=== PATIENT | female | born 1965 | race Caucasian/White ===

== ENCOUNTER 2017-11-18 14:11 | Emergency (ER) | payer MEDICARE, MEDICAID, SELFPAY ==
[2017-11-18 14:14] VITALS: BP 147/95; PULSE 89; RESP 20; TEMP 35.9; O2SAT 96; BMI 38.9
[2017-11-18 15:08] VITALS: BP 147/95; PULSE 89; RESP 20; TEMP 35.9; O2SAT 96; BMI 38.9
--- NOTE | 2017-11-18 15:24 | ED.ABDPAIN ---
HPI - Abdominal Pain General Chief Complaint: Abdominal Pain Stated Complaint: abdominal pain,lethargic,vomiting Time Seen by Provider: 11/18/17 15:00 Source: patient Mode of arrival: ambulatory Limitations: no limitations History of Present Illness HPI narrative: 52-year-old female here for evaluation of her periumbilical abdominal pain. Patient states that this has been going on for an extended period of time. She states that she is here because her Percocet that she has at home are not helping her anymore. She denies any new symptoms. States she has a follow-up with a GI provider next week. She states she has not contacted her primary care doctor regarding her pain management. She states that she was fired from her last Pain Clinic because she states ???the number of pills I had did not match my blood levels ???she also states that she has been fired from 3 other pain clinics. Related Data Home Medications Medication Instructions Recorded Confirmed Humalog U-100 Insulin 18 - 25 units SUB-Q BID 11/18/17 11/18/17 Lantus U-100 Insulin 50 units SUB-Q QHS 11/18/17 11/18/17 alprazolam 1 mg PO TID 11/18/17 11/18/17 cyclobenzaprine 10 mg PO QAM 11/18/17 11/18/17 cyclobenzaprine 20 mg PO QPM 11/18/17 11/18/17 dicyclomine 20 mg PO QID 11/18/17 11/18/17 duloxetine 60 mg PO BID 11/18/17 11/18/17 erythromycin 250 mg PO Q6H 11/18/17 11/18/17 levothyroxine 1 tab PO DAILY 11/18/17 11/18/17 ondansetron HCl 4 mg PO Q6H PRN 11/18/17 11/18/17 oxycodone-acetaminophen 1 tab PO PRN PRN MDD 4 11/18/17 11/18/17 promethazine 25 - 50 mg PO Q6H PRN 11/18/17 11/18/17 quetiapine 3 tab PO QHS 11/18/17 11/18/17 Previous Rx's Medication Instructions Recorded ranitidine HCl [Zantac] 150 mg PO BEDTIME #30 tab 11/18/17 Review of Systems Constitutional Reports fatigue, Denies fever(s) and Reports lethargy Cardiovascular Denies chest pain, Denies irregular heart rhythm, Denies lightheadedness, Denies palpitations, Denies dyspnea, Denies dyspnea on exertion and Denies orthopnea Respiratory Denies cough, Denies dyspnea, Denies dyspnea on exertion and Denies wheezing Gastrointestinal Gastrointestinal: Reports abdominal pain, Denies coffee ground emesis, Denies constipation, Denies cramping, Denies diarrhea, Reports nausea, Reports vomiting and Reports hematemesis Genitourinary Denies hematuria, Denies flank pain, Denies urinary incontinence and Denies urinary urgency Musculoskeletal Denies abnormal gait, Denies back pain, Denies muscle weakness, Denies numbness and Denies tingling Integumentary/Breasts Denies pruritus, Denies erythema, Denies rash and Denies wounds Neurologic Denies abnormal gait, Denies numbness and Denies tingling Endocrine Reports fatigue and Denies palpitations Hematologic/Lymphatic Denies easy bruising Allergic/Immunologic Denies wheezing [facility] Social History Smoking Status: Current every day smoker Exam Initial Vital Signs Initial Vital Signs: Vital Signs Temperature 96.6 F L 11/18/17 14:14 Pulse Rate 89 11/18/17 14:14 Respiratory Rate 20 11/18/17 14:14 Blood Pressure 147/95 H 11/18/17 14:14 Pulse Oximetry 96 11/18/17 14:14 Const General: cooperative and well developed Nutritional Appearance: well nourished Orientation: alert, awake, oriented x3 and not confused Resp Effort & Inspection: normal respiratory effort, able to speak in complete sentences, no respiratory distress and no use of accessory muscles Auscultation: clear to auscultation bilaterally, no rales, no rhonchi and no wheezes Cardio Rate: regular rate Rhythm: regular rhythm Heart Sounds: no click, no gallops, no murmurs and no rubs Pulses: normal peripheral pulses GI Inspection: normal to inspection and non-distended Palpation: soft, No firm, No guarding and tender (Periumbilical) Skin General: no rashes or lesions noted, No jaundice and No petechiae Neuro General: alert, oriented x3, gait normal and no focal motor deficits Speech: speech normal Motor: strength 5/5 throughout Sensory Exam: no sensory deficits noted Extrem General: full ROM, no clubbing, cyanosis or edema, no pedal edema and no calf tenderness Course Vital Signs - 8 hr 11/18/17 14:14 11/18/17 15:08 Temperature 96.6 F L 96.6 F L Pulse Rate 89 89 Respiratory Rate 20 20 Blood Pressure 147/95 H 147/95 H Pulse Oximetry 96 96 MDM - Abdominal Pain MDM Narrative Medical decision making narrative: I was able to review patient's medical records [facility] dated 11/14/2017 which stated that the patient has had multiple visits for this abdominal pain in the past. Has had 2 [address] scans over the last 6 months which were reported as unremarkable except for 1 CT scan that had a generalized colitis. Patient states she has been on antibiotics multiple times. She had a relatively benign abdominal exam today. We discussed her symptoms. She is not currently on a PPI. Informed the patient that if she needed more medicine other than the Percocet to control her pain that she needed to contact her primary care doctor. She stated that her primary care doctor would not prescribe her any pain medication. She has also been per her report fired from 4 different pain management clinics for various reasons. Informed the patient that I would not refill any of her pain medication. She asked for a injection of Dilaudid here in the emergency department. I informed her that opioids were probably not in her best interest especially in the setting of her undifferentiated chronic abdominal pain. She expressed understanding. She left the emergency department before receiving any of her discharge paperwork. She was given return precautions. Discharge Plan Departure Patient Disposition: Home, Self-Care Clinical Impression: Abdominal pain Discharge Date/Time: 11/18/17 16:31 Interventions: ED Discharge Assessment Last Done: 11/18/17 16:30 Instructions: DI for Abdominal Pain-Adult Activity Restrictions/Additional Instructions: Continue all of your medications as directed. If you require more pain control you need to talk with her primary care doctor regarding this. Keep your appointment with your GI specialist next week. Prescriptions: New ranitidine HCl [Zantac] 150 mg tablet 150 mg PO BEDTIME Qty: 30 RF: 0 No Action cyclobenzaprine 10 mg tablet 10 mg PO QAM RF: 0 dicyclomine 20 mg tablet 20 mg PO QID RF: 0 duloxetine 60 mg capsule,delayed release(DR/EC) 60 mg PO BID RF: 0 erythromycin 250 mg tablet 250 mg PO Q6H RF: 0 quetiapine 200 mg tablet 3 tab PO QHS RF: 0 levothyroxine 200 mcg tablet 1 tab PO DAILY RF: 0 oxycodone-acetaminophen 5-325 mg tablet 1 tab PO PRN MDD 4 PRN (Reason: Pain, Severe) RF: 0 cyclobenzaprine 10 mg tablet 20 mg PO QPM RF: 0 alprazolam 1 mg Tablet 1 mg PO TID RF: 0 ondansetron HCl 4 mg Tablet 4 mg PO Q6H PRN (Reason: Nausea And Vomiting) RF: 0 promethazine 25 mg Tablet 25 - 50 mg PO Q6H PRN (Reason: Nausea And Vomiting) RF: 0 Humalog U-100 Insulin 18 - 25 units Sub-Q BID RF: 0 Lantus U-100 Insulin bottle 50 units Sub-Q QHS RF: 0
--- NOTE | 2017-11-18 16:29 | PC.NURSE ---
PT NOT IN ROOM AT TIME OF DISCHARGE. PT NOT IN WAITING ROOM. DISCHARGE PAPER AND PRESCRIPTION NOT GIVEN TO PT DUE TO PT NOT IN ER AT THIS TIME. PROVIDER AWARE. NO NEW ORDERS.
== END 2017-11-18 16:31 | disposition home or self-care (01) ==
PROVIDERS: Emergency Provider Emergency Medicine
DX: R10.9 Unspecified abdominal pain (principal)
CPT/HCPCS: 99282

== ENCOUNTER → 2020-01-20 11:54 | Outpatient (CLI) | payer MEDICARE, MEDICAID, SELFPAY ==
--- NOTE | 2020-01-20 | DI.MRI.S_ITS ---
PROCEDURE: MR LUMBAR SPINE WO CON INDICATIONS: sciatica, right side TECHNIQUE: Noncontrast sagittal T1 spin echo and T2 fast echo, sagittal STIR, axial T1 and T2 fast spin echo through the lumbar spine. In cases with scoliosis, additional coronal T2 fast spin echo may be performed. COMPARISON: None. FINDINGS: Image quality: Excellent. Alignment and Curvature: There is trace L4-5 L5 anterolisthesis secondary to facet hypertrophy. Bone Marrow: Marrow is of normal overall signal. No acute vertebral body compression fractures. Spinal Cord: Conus medullaris terminates at the L1-2 disc level. Visualized cord demonstrates normal signal and size. Paraspinous Soft Tissues: No paravertebral masses. L1-L2: Normal appearance. L2-L3: Slight loss of disc signal. No central stenosis. No neural foraminal narrowing. No neural compression. L3-L4: Slight loss of disc signal. Mild bilateral facet hypertrophy. No central stenosis. No neural foraminal narrowing. No neural compression. L4-L5: Loss of disc signal. Mild, diffuse disc bulge. Moderate bilateral facet hypertrophy. Mild narrowing of the central canal. Mild bilateral neural foraminal narrowing. No neural compression. L5-S1: Loss of disc signal. Mild, diffuse disc bulge. Mild bilateral facet hypertrophy. No central stenosis. No neural foraminal narrowing. No neural compression. IMPRESSION: 1. Grade 1 L4-L5 degenerative spondylolisthesis. 2. Multilevel degenerate disc disease. 3. Multilevel facet arthropathy. 4. Mild L4-L5 central canal narrowing. 5. Mild bilateral L4-L5 neural foraminal narrowing. 6. No neural compression. Dictated by: Ame Cole MD, PhD on 01/20/2020 at 15:21 Approved by: Ame Cole MD, PhD on 01/20/2020 at 15:25
== END ==
PROVIDERS: Referring Provider Orthopaedic Surgery; Visit Provider Orthopaedic Surgery
DX: M43.16 Spondylolisthesis, lumbar region (principal); M51.16 Intervertebral disc disorders with radiculopathy, lumbar region; M51.17 Intervertebral disc disorders with radiculopathy, lumbosacral region; M47.26 Other spondylosis with radiculopathy, lumbar region; M47.27 Other spondylosis with radiculopathy, lumbosacral region; M48.061 Spinal stenosis, lumbar region without neurogenic claudication
CPT/HCPCS: 72148

== ENCOUNTER → 2020-02-16 08:36 | Outpatient (CLI) | payer MEDICARE, MEDICAID, SELFPAY ==
[2020-02-16 10:27] LABS: Add Manual Diff / Slide Review NO; Basophils Absolute Auto 100 /uL (0-100); Basophils Percent Auto 0.8 % (0-2); Eosinophils Absolute Auto 100 /uL (0-450); Eosinophils Percent Auto 1.3 % (2-4); Hematocrit 42.6 % (36-46); Hemoglobin 14.7 g/dL (12.0-16.0); Lymphocytes Absolute Auto 2800 /uL (1100-4500); Mean Corpuscular HGB Conc 34.6 % (30-36); Mean Corpuscular Hemoglobin 30.4 PG (26-34); Mean Corpuscular Volume 87.7 fL (80-100); Monocytes Absolute Auto 900 /uL (0-900); Monocytes Percent Auto 8.9 % (3-14); Neutrophils Absolute Auto 5800 /uL (1500-7000); Platelet Count 332 X10^3/uL (150-400); Red Blood Cell Count 4.85 X10^6/uL (4.0-5.2); Red Cell Distribution Width 14.3 % (11.6-14.8); White Blood Cell Count 9.6 X10^3/uL (4.5-11.0)
[2020-02-16 10:46] LABS: BUN Creatinine Ratio 29.2 (6-22); Blood Urea Nitrogen 19 mg/dL (7-17); Calcium 9.6 mg/dL (8.4-10.2); Carbon Dioxide 32 mmol/L (22-32); Chloride 94 mmol/L (98-107); Estimated Glomerular Filt Rate > 60.0 mL/min (>60); Glucose 182 mg/dL (70-100); HEMOLYSIS < 15 (0-50); Potassium 3.6 mmol/L (3.4-5.1); Sodium 131 mmol/L (137-145)
[2020-02-16 10:48] LABS: Hemoglobin A1C% w Est Avg Glu 11.4 % (4.0-6.0)
== END ==
PROVIDERS: PCP Family Medicine; Referring Provider Orthopaedic Surgery; Visit Provider Orthopaedic Surgery
DX: Z01.818 Encounter for other preprocedural examination (principal); Z01.812 Encounter for preprocedural laboratory examination; R73.9 Hyperglycemia, unspecified
CPT/HCPCS: 36415; 80048; 83036; 85025; 93005

== ENCOUNTER → 2020-10-14 11:35 | Outpatient (CLI) | payer OTHER, MEDICAID, SELFPAY ==
--- NOTE | 2020-10-14 | DI.MRI.S_ITS ---
PROCEDURE: MR KNEE RT WO CON INDICATIONS: right knee TECHNIQUE: Noncontrast sagittal PD fast spin echo and T2 fast spin echo with fat saturation, sagittal 3-D FLASH with fat saturation; coronal T1 spin echo and PD fast spin echo with fat saturation, and axial PD fast spin echo with fat saturation through the knee. COMPARISON: [facility], MR, MR KNEE RIGHT WITHOUT CONTRAST, 12/28/2019, 13:11. [facility] [place], CR, XR KNEE 4+ VIEWS RIGHT, 09/20/2020, 14:08. FINDINGS: Image quality: Excellent. Menisci: Previously seen horizontal tear of the medial meniscus is less well seen on the current examination. There is vertically oriented linear high T2 signal intensity traversing the medial meniscal body, demonstrating inferior articular surface extension, indicating radial tearing. There is linear oblique high signal intensity traversing the lateral meniscal body and posterior horn, demonstrating inferior articular surface extension, which is slightly increased in prominence, indicating oblique tearing. Cruciate ligaments: The anterior cruciate ligament is intact. There is moderate to high-grade partial-thickness tearing of the posterior cruciate ligament. Medial structures: The medial collateral ligament appears intact. Visualized portions of the pes anserinus tendons appear normal. No abnormal bursal fluid. Lateral structures: The lateral collateral ligament, long and short heads of the biceps femoris tendon appear intact. The popliteus tendon appears normal. Iliotibial band appears normal. Anterior structures: The quadriceps and patellar tendons appear intact. There is mild T2 signal elevation within the patellar tendon at the patellar and tibial insertion sites. Mild T2 signal elevation within the quadriceps tendon at the patellar insertion site. Patellar alignment is normal. No femoral trochlear dysplasia or ventral trochlear prominence. Severe edema within the superolateral aspect of the infrapatellar fat pad. Bones and cartilage: No bone marrow contusions or fractures. Geographically oriented curvilinear low T1 signal intensity within the mid and posterior weight-bearing aspect of the medial femoral condyle spanning roughly 25 mm anteroposterior by 10 mm transverse by 17 mm craniocaudal. Mild tricompartmental periarticular osteophyte formation. Mild articular cartilage loss diffusely overlies the weight-bearing aspects of the medial femoral condyle and medial tibial plateau. The cartilage of the medial and lateral femorotibial compartments, as well as the patellofemoral compartment, appears normal in thickness. Moderate articular cartilage loss overlies the lateral patellar facet inferiorly. Joint space: There is a small knee joint effusion and a trace Morales's cyst. Small ganglion cyst along the popliteus. Normal appearing synovial plicae are incidentally noted. IMPRESSION: 1. Medial and lateral meniscal tearing as described above. 2. Patellar and quadriceps tendinopathy. 3. Findings consistent with lateral patellofemoral friction syndrome in the appropriate clinical setting. 4. Tricompartmental osteoarthritis with associated articular cartilage loss. 5. Knee joint effusion and trace Morales's cyst. Small ganglion cyst along the popliteus. 6. Partial-thickness posterior cruciate ligament tear. 7. Medial femoral condyle AVN. Dictated by: Lisbet Pierce M.D. on 10/15/2020 at 8:37 Transcribed by: ADRIANO on 10/15/2020 at 8:48 Approved by: Lisbet Pierce M.D. on 10/15/2020 at 8:56
== END ==
PROVIDERS: PCP Family Medicine; Referring Provider Orthopaedic Surgery; Visit Provider Orthopaedic Surgery
DX: M17.11 Unilateral primary osteoarthritis, right knee (principal); S83.281A Other tear of lateral meniscus, current injury, right knee, initial encounter; S83.241A Other tear of medial meniscus, current injury, right knee, initial encounter; M25.461 Effusion, right knee; S83.521A Sprain of posterior cruciate ligament of right knee, initial encounter
CPT/HCPCS: 73721

== ENCOUNTER → 2020-11-10 10:53 | Outpatient (CLI) | payer OTHER, MEDICAID, SELFPAY ==
[2020-11-10 12:31] LABS: COVID19 -Nasal RAPID Negative (Negative)
== END ==
PROVIDERS: PCP Family Medicine; Referring Provider Student in an Organized Health Care Education/Training Program; Visit Provider Student in an Organized Health Care Education/Training Program
DX: Z01.812 Encounter for preprocedural laboratory examination (principal); Z20.822 Contact with and (suspected) exposure to COVID-19
CPT/HCPCS: 87635; C9803

== ENCOUNTER 2020-11-13 17:22 | Inpatient (IN) | payer OTHER, MEDICAID, SELFPAY ==
[2020-11-06 11:46] VITALS: BMI 40.6
[2020-11-12] VITALS (13 sets, daily range): BP systolic 108–152; BP diastolic 53–94; PULSE 64–98; RESP 14–18; TEMP 36.1–36.8; O2SAT 92–99; BMI 40.6
--- NOTE | 2020-11-12 | DI.RAD.S_ITS ---
PROCEDURE: XR KNEE RT 1TO2V INDICATIONS: POST OP TECHNIQUE: 2 view(s) of the knee acquired. COMPARISON: [facility] [place], CR, XR KNEE 4+ VIEWS RIGHT, 09/20/2020, 14:08. FINDINGS: Bones: Patient is status post knee joint arthroplasty. Hardware components are in expected positions. Visualized bony structures are intact. Soft tissues: Overlying postoperative changes are noted. IMPRESSION: Expected postsurgical change for right knee arthroplasty. Dictated by: Ame Cole MD, PhD on 11/12/2020 at 13:15 Approved by: Ame Cole MD, PhD on 11/12/2020 at 13:18
[2020-11-12] MEDS: LACTATED RINGERS 1,000 ML 42 ML IV ×2 (09:14→11:39)
[2020-11-12] MEDS: ACETAMINOPHEN 325 MG TABLET 975 MG PO (09:21)
[2020-11-12] MEDS: PREGABALIN 75 MG CAPSULE PO (09:22)
[2020-11-12] MEDS: CELECOXIB 200 MG CAPSULE PO (09:22)
--- NOTE | 2020-11-12 10:12 | PM.PREOP ---
Pre-operative Note COVID-19 COVID-19 status: Negative Result date/Date tested (Pos, Neg/Pending): 11/10/20 Interval Note History & Physical reviewed/Exam performed by Physician: Yes Changes to H&P: No
--- NOTE | 2020-11-12 10:32 | PM.OP.1 ---
Operative Date/Time/Diagnoses Date of procedure: 11/12/20 Time of procedure: 12:42 Pre-op diagnosis: Right knee avascular necrosis Post-op diagnosis: same Procedure & Clinicians Procedure: Right total knee replacement Same procedure as scheduled: Yes Indications: The patient has had progressively worsening right knee pain with radiographic changes consistent with avascular necrosis. Non-operative management has failed and the patient has requested total knee replacement. The risks, benefits and alternatives to surgery were discussed with the patient prior to proceeding. Risks discussed included, but were not limited to, failure to relieve pain, stiffness, infection, nerve damage, deep venous thrombosis, pulmonary embolism, stroke, coma, heart attack, permanent paralysis and , as well as the potential need for eventual revision of the prosthetic. Surgeon: Venancio Rodriguez Starting Sheet Tank Operator: Immanuel Pollock Click Yes if Unassisted: No Anesthesia Type: General, Spinal and Local Operative Notes Findings: Mild arthritic change in the medial compartment and patellofemoral joint. Mild sub chondral AVN changes of medial femoral condyle. Closure Type: primary Specimen(s): none sent Prosthetic devices, grafts, tissues, transplants, or devices: Implants used in this procedure were manufactured by the [employer] and [employer] and included the BCS II Journey total knee replacement with a size 3 right Oxinium femoral component, a size 2 right non porous tibial base plate with a 10 mm cross-linked polyethylene insert and a 32 mm oval Claudia II patella. Applied: implant(s) Estimated Blood Loss (mL): 25 Blood products transfused: none Tourniquet time (min): 51 Procedure in detail: The patient was seen in the pre-operative area, where the patient identified the right knee as the operative site and this was marked with my initials. The patient received pre-operative antibiotics, and was taken to the operating room and placed on the operative table in the supine position. After satisfactory anesthesia, a multimedia programmer out was performed. The right leg was encircled with a tourniquet about the proximal thigh, and the leg was prepared from the toes to the tourniquet with ChloroPrep in the usual fashion and draped through sterile drapes. The leg was elevated and exsanguinated with Eschmark bandage and the tourniquet inflated to 250 mmHg pressure. The knee was approached through an approximately 18 cm incision centered over the patella and carried into the knee through a medial parapatellar arthrotomy. The anterior osteophytes and soft tissues were removed. The rotational landmarks of Diana's line and the transepicondylar axis were marked on the femur with electrocautery, and intramedullary guide holes for the femur and tibia were created. The distal femoral cut was made in 6 degrees of valgus using the intramedullary guide at the primary cut setting. The proximal tibial cut was then made using the intramedullary guide, taking 9 mm of bone off the less involved side. The extension gap was checked and the rotation of the femoral component confirmed with the gap balancing system. The anterior, posterior and chamfer cuts were then made. The posterior osteophytes and soft tissues were then removed. The posterior capsule was injected with part of a mixture of 60 ml 0.25% Marcaine mixed with 20 ml Exparel and 4 mg of morphine for post-operative pain control. The remainder of this mixture was injected into the capsule and subcutaneous tissues during cement curing. The tibia was prepared with the rotation set by an extra medullary guide. Trial tibial and femoral components were then placed and the intercondylar notch cut through the femoral trial. Range of motion was 0-135 degrees, with good stability throughout the range. The patella was then cut to accommodate the patellar prosthetic. There was no need for a lateral release. The trials were then removed, and the femoral hole plugged with a bone plug. The bone was prepared with pulsatile lavage, and dried with a sponge. Cement was applied and the final prosthetics placed. Excess cement was removed during and after cement curing. After confirming there was no extruded cement posteriorly, the final tibial insert was placed. The knee was copiously irrigated and the tourniquet deflated. Hemostasis was obtained. The capsule was closed with interrupted # 2 polyester suture. The subcutaneous layer was closed with 3-0 Vicryl, and the skin with a running 3-0 V-Lock suture and Dermabond. An Aquacel Ag dressing was applied and the patient was taken to recovery having tolerated the procedure well. Complications: none Post-operative Condition: stable Disposition: PACU Plan for aftercare: The patient will be maintained on a standard total knee replacement protocol with weight bearing as tolerated. The patient will receive aspirin and sequential compression devices for DVT prophylaxis. The patient will be discharged home when safe for the home environment.
[2020-11-12] MEDS: CEFAZOLIN 2 GM/100 ML FROZ.PIGGY IV (11:04)
[2020-11-12] MEDS: TRANEXAMIC ACID 1,000 MG VIAL 1000 MG INJ ×2 (11:10→12:31)
--- NOTE | 2020-11-12 11:24 | SUR.OPER ---
Supine on padded OR bed. Pillow under head, arms secured on padded armboards <90 degree abduction. Safety belt across torso. Non-operative leg secured with tape over blanket over lower leg. Operative leg secured in DeMayo/Nathan positioner. Foam padded brace at thigh of operative leg.
[2020-11-12] MEDS: BUPIVACAINE LIPOSOME 266 MG/20 ML VIAL INJ (11:37)
[2020-11-12] MEDS: BUPIVACAINE 0.25% W/ EPI 30 ML VIAL 60 ML INJ (11:37)
[2020-11-12] MEDS: MORPHINE 4 MG/ML INJ INJ (11:38)
--- NOTE | 2020-11-12 13:53 | PC.NURSE ---
Day shift: Pt on unit at approx 1324 from PACU. She is A&Ox4. Denies any rt knee pain but stated that her shoulders and neck do hurt her chronically. VS WNL. RA 95%. PPP and toes are warm. No sensation below the rt thigh and can't wiggle toes at this time. Denies any nausea or chest pain. Wanted a cup of coffee and is tolerating that right now. BT's hypoactive and denies passing any flatus. No drains and no Bejarano. BG was 157 pre-op. Oriented to room and call light. Agrees to not get OOB w/o help from staff. Call light in reach.
[2020-11-12] MEDS: LACTATED RINGERS 1,000 ML 100 ML IV ×2 (13:59→23:07)
[2020-11-12] MEDS: HYDROMORPHONE 2 MG TABLET PO ×3 (14:11→21:41)
[2020-11-12] MEDS: GABAPENTIN 300 MG CAPSULE 900 MG PO ×2 (14:11→21:23)
[2020-11-12] MEDS: ACETAMINOPHEN 325 MG TABLET 650 MG PO ×2 (14:12→21:24)
[2020-11-12] MEDS: BACLOFEN 10 MG TABLET PO ×2 (14:12→21:23)
[2020-11-12] MEDS: IBUPROFEN 400 MG TABLET PO ×3 (14:12→21:23)
[2020-11-12] MEDS: ALPRAZolam 0.5 MG TABLET 1 MG PO ×2 (14:54→21:23)
--- NOTE | 2020-11-12 16:28 | PT.IIE ---
Current Diagnoses Unilateral primary osteoarthritis, right knee (11/12/20) Derangement of unspecified medial meniscus due to old tear or injury, right knee (11/12/20) Osteonecrosis, unspecified (11/12/20) Surgery Performed Operation Date: 11/12/20 10:45 Actual Procedures p Total Knee Arthroplasty(Right) - Venancio Rodriguez MD Surgical History (Last Updated 11/09/20 @ 10:22 by Dena Frank RN) History of bilateral tubal ligation History of section History of surgery (~2006) Hx of appendectomy Hx of cholecystectomy Hx of eye surgery Hx of foot surgery (09/03/07) Hx of fusion of cervical spine Medical History (Last Updated 11/09/20 @ 10:23 by Dena Frank RN) Acid reflux ADD (attention deficit disorder) Agoraphobia Anxiety Bipolar 2 disorder COPD (chronic obstructive pulmonary disease) Depression Diabetes Fibromyalgia Hypothyroid Neuropathy Old complex tear of medial meniscus of right knee RAMIRO (obstructive sleep apnea) Osteoarthritis Pneumonia Post-menopausal PTSD (post-traumatic stress disorder) Sciatica Physical Therapy Inpatient Evaluation/Re-Eval M1 PT/OT-IP Prior Functional Status Start: 11/12/20 15:41 Freq: NEEDED Status: Active Protocol: Document 11/12/20 16:28 AW (Rec: 11/12/20 17:14 AW [id number]) Medical Review Prior Functional Status Medical History Reviewed Yes Communication WNL. Pt is an effective verbal communicator. Mobility and Gait Pt uses 4WW or SPC for distances limited to 150 feet or less. Sometimes, she ambulates in her home with no AD but stays close to furniture and gomes. Pt admits to falls in the past year but won't say how many or if any were injurious. Activities of Daily Living and IADL's Independent Prior Functional Level (Other details) Pt states she has chronic back pain and fibromyalgia. Social History Household Members significant other Living Arrangements Apartment/Condo Number of Floors (Floors) One Floor Number of Stairs To Enter/Railing? Level entrance Home Environment Standard Height Toilet,High Toilet,Tub/Shower Home Equipment Four Wheel Walker,Straight Cane,Manual Wheelchair,Hand Held Shower,Hospital Bed,Grab Bars Near Toilet,Grab Bars In Shower Employment Status Unemployed Additional Social History Comment Pt lives with her significant other, Dell, who works in the apartment complex where they live. He will not be home 26/01 at discharge but will be readily available. Pt states her daughter is considering visiting from [place] in order to help but plans are not certain. M2 PT-IP Current Condition Start: 11/12/20 15:41 Freq: NEEDED Status: Active Protocol: Document 11/12/20 16:28 AW (Rec: 11/12/20 17:14 AW [id number]) Physical Therapy Current Condition Current Condition Evaluation Date 11/12/20 Treatment Diagnosis R TKA; difficulty in walking Onset Date 11/12/20 Precautions Other Precautions falls Weight Bearing Status Weight Bearing Status Weight Bear as Tolerated M3 PT-IP Subjective Start: 11/12/20 15:41 Freq: NEEDED Status: Active Protocol: Document 11/12/20 16:28 AW (Rec: 11/12/20 17:14 AW [id number]) Subjective Physical Therapy Visit Type Visit Start Time 15:55 Visit Stop Time 16:28 Total Visit Minutes 33 Notes Pt's SO, Dell, is present throughout evaluation. Physical Therapy Visit Comments Patient Comments Pt is willing to participate with PT Patient Goals Return home with SO support Therapy Pain Assessment Pain When Pain Assessed During Mobility Pain Present Pain Present Pain Reported Location Right Knee Intensity 7 Scale Used Numeric (0 - 10) Pain Behaviors Wincing Pain Management Techniques Apply Cold,Modification of Treatment,Re-positioning, Timing of Activity with Medications M4 PT-IP Mobility and Gait Start: 11/12/20 15:41 Freq: NEEDED Status: Active Protocol: Document 11/12/20 16:28 AW (Rec: 11/12/20 17:14 AW [id number]) PT-Bed Mobility Assessment Supine to Sit Supine to Sit Contact Guard Assistance,1 Person Assistance,Head of Bed Elevated Sit to Supine Sit to Supine Minimal Assistance,1 Person Assistance Scooting Scooting to Edge of Bed Contact Guard Assistance PT-Transfer Assessment Sit to and From Stand Sit to and from Stand Contact Guard Assistance Equipment Transfer Assistive Device Gait Belt,Front Wheeled Walker Orthotic/Prosthetic Devices or Brace: No Transfers Transfer Destination Bed,Chair Transfer Technique Stand Step Pivot Transfer Ability Level of Assist Contact Guard Assistance Comments Mobility Comments Pt was lying in bed as PT arrived. BP 158/79 HR 102. She states she has a hospital bed at home, so completed supine to sit with HOB elevated and CGA for stability. PT is 5'1 so was unable to touch the ground in sitting EOB and required CGA to stand. She was able to shift weight and agreed to ambulate in the room . She walked five feet forward toward the window and began to report cold sweat and nausea. Pt sat on the chair CGA. BP was 128/51 HR 98. Pt was provided a cool washcloth. Nausea resolved and pt was able to stand from the chair CGA and used FWW to transfer to the bed. She needed min assist for return to supine. BP recovered to 152/68 HR 103. Reported findings to RN and left pt with call light in reach, bed alarm on, SO remained in the room. Gait Assessment Gait Gait Assistance Required: Contact Guard Assist Distance (Feet) 5 Able to Maintain Weight Bearing Status Yes During Gait Assistive Devices Assistive Device Gait Belt,Front Wheeled Walker Orthotic/Prosthetic Devices or Brace: No Gait Deviations General Gait Pattern Antalgic,Decreased Stride Length,Decreased Feet Clearance,Flexed Trunk,Step-to Gait,Wide Based Gait Factors Limiting Gait Function Factors Limiting Gait Function Decreased Sensation,Decreased Strength,Limited Range of Motion,Pain,Poor Balance Comments Gait Comments See mobility comments for details. Stair Climbing Assessment Comments Stair Climbing Comments Not assessed. No stairs at home. PT-Balance Assessment Sitting Balance and Reactions Static Sitting Balance Ability Good Dynamic Sitting Balance Ability Good Standing Balance and Reactions Static Standing Balance Ability Good Dynamic Standing Balance Ability Fair Device Used FWW M5 PT-IP Objective Assessments Start: 11/12/20 15:41 Freq: NEEDED Status: Active Protocol: Document 11/12/20 16:28 AW (Rec: 11/12/20 17:14 AW [id number]) Orientation Orientation/Cognition Level of Alertness Alert Orientation Name,Day of Week,Place, Situation Language Function Ability No Deficits Noted Safety Awareness Understands Safety Issues Memory Description No Deficits Noted Gross Range of Motion Lower Extremity ROM Assessment Right Impaired Strength Lower Extremity Strength Assessment Right Impaired Hip 4-/5 Knee 3-/5 Ankle 4-/5 Sensation Assessment Sensation Gross Sensation Right LE Impaired,Left LE Impaired Light Touch Impaired Proprioception (Position) Impaired Sensation Description Numbness,Burning,Pain Comments Sensation Comments Pt has neuropathy affecting bilateral feet up to malleoli. On evaluation, pt had impaired light touch sensation from buttocks to mid thigh but was able to perceive pressure. M6 PT-IP Treatment Start: 11/12/20 15:41 Freq: NEEDED Status: Active Protocol: Document 11/12/20 16:28 AW (Rec: 11/12/20 17:14 AW [id number]) Physical Therapy Treatment Exercises Exercises Ankle Pumps,Quad Sets,Heel Slides,Passive Knee Extension Hang Education Education Provided Precautions,Weight Bearing Status,Post-Op Packet,Safety Other Treatments Other Treatment Performed Educated pt on PT plan of care , weightbearing status, rationale for selection of FWW as assistive device at this time, and importance of ROM in initial phase of rehab. M7 PT-IP Assessment and Plan Start: 11/12/20 15:41 Freq: NEEDED Status: Active Protocol: Document 11/12/20 16:28 AW (Rec: 11/12/20 17:14 AW [id number]) PT Summary Assessment and Plan Potential Rehabilitation Potential Good Status of Condition at Evaluation Evolving Summary Impairments Pain,ROM,Strength,Balance, Sensation,Bed Mobility, Transfers,Gait,Activity Tolerance Assessment Summary Ofelia is a 55 yo woman seen for PT evaluation on POD1 following R TKA. She is modifed independent for short distance community ambulation using 4WW or SPC at baseline. On evaluation, pt was limited by diaphoresis and nausea but was able to tolerate 5 feet ambulation with FWW CGA. Pt will need to improve her mobility independence for safe discharge home. Outpatient PT is already scheduled. Goals Bed Mobility Goal Independent Transfer Goal Independent,Front Wheeled Walker Gait Goal Independent,Front Wheel Walker Gait Distance 120 Days to Meet Goals 5 Frequency of Treatment Frequency Of Treatment Twice a Day Treatment Plan Physical Therapy Treatment Plan Bed Mobility Training,Transfer Training,Gait Training, Therapeutic Exercise,Balance Retraining,Post Op Education, Discharge Planning,Hot or Cold Pack,Neuromuscular Re-ed Other Recommendations and Next Treatment assess gait with 4WW if Focus appropriate; progress gait training with AD of choice. Precautions Other Precautions WBAL RLE. Falls. Recommendations To Nursing Amount of Assist Needed 1 Person Assist Discharge Recommendations PT Discharge Recommendations Home with Assistance, Outpatient PT Equipment Needed for Home Before FWW if unsafe with 4WW Discharge Transportation Needs at Discharge Private Vehicle
[2020-11-12] MEDS: hydrOXYzine pamoate 25 MG CAPSULE PO (16:39)
[2020-11-12] MEDS: ONDANSETRON 4 MG ODT PO (16:51)
[2020-11-12] MEDS: ONDANSETRON 4 MG/2 ML INJ IV (18:12)
[2020-11-12] MEDS: INSULIN GLARGINE 100 UNIT/ML 3ML PEN 50 UNIT SUBCUT (18:15)
[2020-11-12] MEDS: MORPHINE ER 30 MG TABLET PO (19:11)
[2020-11-12] MEDS: HYDROMORPHONE 0.5 MG INJ 0.2 MG IV (20:09)
[2020-11-12] MEDS: PROMETHAZINE 25 MG TABLET PO (20:09)
[2020-11-12] MEDS: ASPIRIN EC 81 MG TABLET PO (21:23)
[2020-11-12] MEDS: DULOXETINE 30 MG CAPSULE 60 MG PO (21:23)
[2020-11-13] MEDS: IBUPROFEN 400 MG TABLET PO ×6 (00:12→22:22)
[2020-11-13] MEDS: ONDANSETRON 4 MG/2 ML INJ IV ×2 (00:12→05:17)
[2020-11-13] MEDS: HYDROMORPHONE 2 MG TABLET PO ×6 (00:14→15:34)
[2020-11-13] MEDS: hydrOXYzine pamoate 25 MG CAPSULE PO ×2 (00:14→11:48)
[2020-11-13] MEDS: PROMETHAZINE 25 MG TABLET PO (02:59)
[2020-11-13 03:10] VITALS: BP 136/61; PULSE 100; RESP 18; TEMP 36.4; O2SAT 94
[2020-11-13] MEDS: HYDROMORPHONE 0.5 MG INJ 0.2 MG IV ×8 (04:22→18:08)
[2020-11-13] MEDS: MORPHINE ER 30 MG TABLET PO ×2 (05:18→18:08)
[2020-11-13] MEDS: LEVOTHYROXINE 100 MCG TABLET 200 MCG PO (06:18)
[2020-11-13 07:02] LABS: Hematocrit 37.2 % (36-46); Hemoglobin 12.5 g/dL (12.0-16.0)
--- NOTE | 2020-11-13 07:29 | P.PN_ITS ---
Subjective Subjective Date Patient Seen: 11/13/20 Time Patient Seen: 07:29 Interval history: Patient states she is in a significant amount of discomfort even at rest. At this time denies fever, chills, nausea, chest pain, shortness of breath, or urinary retention. She reports good sensation throughout the bilateral lower extremities to light touch. She explains that she has been able to ambulate to use the commode and sit in the arm chair in her room. Exam Vital Signs (past 8 hours): - 11/12/20 23:40 11/13/20 03:10 Temperature 97.0 F L 97.6 F Pulse Rate 98 H 100 H Respiratory Rate 18 18 Blood Pressure 132/65 136/61 Pulse Oximetry 95 94 Oxygen Delivery Method Room Air Oxygen Flow Rate 0 Narrative Exam Narrative: 55-year-old female postop day 1 status post right total knee arthroplasty. Patient is resting in bed, appears uncomfortable, and is alert and oriented x3. Skin is warm and dry, and the skin surrounding the incision site is free of erythema, warmth, induration, or discharge. Aquacel dressing over the incision is free of strike through and is clean and dry. Good sensation appreciated throughout the bilateral lower extremities to light touch. Tenderness to palpation along the medial and lateral aspects of the right thigh and lower leg. Ankle dorsiflexion, plantar flexion, eversion, inversion performed bilaterally without difficulty or discomfort. Calves are soft and nontender, negative Homans sign. Palpable pulses appreciated, capillary refill less than 2 seconds. No other signs of DVT appreciated. Const General: cooperative and healthy appearing Resp Effort & Inspection: normal respiratory effort and able to speak in complete se ntences Skin General: no rashes or lesions noted Objective Labs Result Diagrams: 11/13/20 06:50 Labs: Laboratory Results - last 24 hr 11/13/20 06:50 Hgb 12.5 Hct 37.2 PFSH Medical History Acid reflux ADD (attention deficit disorder) Agoraphobia Anxiety Bipolar 2 disorder COPD (chronic obstructive pulmonary disease) Depression Diabetes Fibromyalgia Hypothyroid Neuropathy Old complex tear of medial meniscus of right knee RAMIRO (obstructive sleep apnea) Osteoarthritis Pneumonia Post-menopausal PTSD (post-traumatic stress disorder) Sciatica Surgical History History of bilateral tubal ligation History of section History of surgery (~2006) Hx of appendectomy Hx of cholecystectomy Hx of eye surgery Hx of foot surgery (09/03/07) Hx of fusion of cervical spine Social History household members: significant other Smoking Status: Former smoker alcohol intake: never Assessment & Plan Post-op Postoperative Procedures: Procedures Operation Date: 11/12/20 10:45 Actual Procedures Side Surgeon p Total Knee Arthroplasty Right Venancio Rodriguez MD Postoperative day: 1 Postoperative plan: ambulate Postoperative plan narrative: Patient is to work with physical therapy on ambulation with the assistance of a front wheeled walker. She is to remain in standard total knee replacement protocol and to be weight-bearing as tolerated with the assistance of a front wheeled walker. Patient is to continue use of SCDs and aspirin 81 mg twice daily for DVT prophylaxis. Current pain management regimen is to be continued to see if her pain level can be better controlled. Time Spent With Patient Time with patient: 15-24 minutes
[2020-11-13 07:35] VITALS: BP 162/74; PULSE 95; RESP 16; TEMP 36.9; O2SAT 95
[2020-11-13 07:53] VITALS: PULSE 97; RESP 16; O2SAT 94
[2020-11-13] MEDS: DULOXETINE 30 MG CAPSULE 60 MG PO ×2 (08:08→22:21)
[2020-11-13] MEDS: GABAPENTIN 300 MG CAPSULE 900 MG PO ×3 (08:08→22:21)
[2020-11-13] MEDS: TIZANIDINE 4 MG TABLET PO (08:09)
[2020-11-13] MEDS: DOCUSATE 100 MG CAPSULE PO ×2 (08:09→22:21)
[2020-11-13] MEDS: BACLOFEN 10 MG TABLET PO ×3 (08:09→22:20)
[2020-11-13] MEDS: METFORMIN HCL 500 MG TABLET PO ×2 (08:11→22:22)
[2020-11-13] MEDS: ALPRAZolam 0.5 MG TABLET 1 MG PO ×2 (08:12→14:00)
[2020-11-13] MEDS: ACETAMINOPHEN 325 MG TABLET 650 MG PO ×3 (08:12→22:19)
--- NOTE | 2020-11-13 08:22 | P.PN_ITS ---
Subjective Subjective Date Patient Seen: 11/13/20 Time Patient Seen: 08:23 Interval history: The patient complains of significant discomfort overnight. Exam Vital Signs (past 8 hours): - 11/13/20 03:10 11/13/20 07:53 Temperature 97.6 F Pulse Rate 100 H 97 H Respiratory Rate 18 16 Blood Pressure 136/61 Pulse Oximetry 94 94 Oxygen Delivery Method Room Air Oxygen Flow Rate 0 Narrative Exam Narrative: Right knee wound is dressed with no drainage on the bandage. There is minimal swelling. There is no surrounding erythema. Calf is soft. Light touch and motion are intact in the right lower extremity. Objective Labs Result Diagrams: 11/13/20 06:50 Labs: Laboratory Results - last 24 hr 11/13/20 06:50 Hgb 12.5 Hct 37.2 PFSH Medical History Acid reflux ADD (attention deficit disorder) Agoraphobia Anxiety Bipolar 2 disorder COPD (chronic obstructive pulmonary disease) Depression Diabetes Fibromyalgia Hypothyroid Neuropathy Old complex tear of medial meniscus of right knee RAMIRO (obstructive sleep apnea) Osteoarthritis Pneumonia Post-menopausal PTSD (post-traumatic stress disorder) Sciatica Surgical History History of bilateral tubal ligation History of section History of surgery (~2006) Hx of appendectomy Hx of cholecystectomy Hx of eye surgery Hx of foot surgery (09/03/07) Hx of fusion of cervical spine Social History household members: significant other Smoking Status: Former smoker alcohol intake: never Assessment & Plan Post-op Postoperative Procedures: Procedures Operation Date: 11/12/20 10:45 Actual Procedures Side Surgeon p Total Knee Arthroplasty Right Venancio Rodriguez MD Postoperative day: 1 Postoperative status: doing well and marginal pain control Postoperative status narrative: Patient is 1 day status post total knee replacement. She has had marginal pain control overnight. She is a chronic pain management patient was managed on MS Contin at baseline. She is receiving that with additional delighted and oxycodone for postoperative pain control. She also has an anxiety disorder and is receiving her antianxiety medications. She is aware of the difficulty controlling postoperative pain in patients who are narcotic dependent at baseline. She understands it is a matter of time before her pain will improve. Postoperative plan: routine post-op care and ambulate Postoperative plan narrative: At this point we will continue her MS Contin, oxycodone and hydromorphone for breakthrough pain. We will continue her anxiolytics. She will work with Physical therapy to mobilize. It will likely be 1-2 more days before she is ready to discharge home based on the significant pain control issues, which I anticipate will limit her progress in physical th erapy. Time Spent With Patient Time with patient: 15-24 minutes
--- NOTE | 2020-11-13 09:15 | PT.IPTN ---
Current Diagnoses Unilateral primary osteoarthritis, right knee (11/12/20) Derangement of unspecified medial meniscus due to old tear or injury, right knee (11/12/20) Osteonecrosis, unspecified (11/12/20) Surgery Performed Operation Date: 11/12/20 10:45 Actual Procedures p Total Knee Arthroplasty(Right) - Venancio Rodriguez MD Physical Therapy Treatment Note M2 PT-IP Current Condition Start: 11/12/20 15:41 Freq: NEEDED Status: Active Protocol: Document 11/12/20 16:28 AW (Rec: 11/12/20 17:14 AW [id number]) Physical Therapy Current Condition Current Condition Evaluation Date 11/12/20 Treatment Diagnosis R TKA; difficulty in walking Onset Date 11/12/20 Precautions Other Precautions falls Weight Bearing Status Weight Bearing Status Weight Bear as Tolerated M3 PT-IP Subjective Start: 11/12/20 15:41 Freq: NEEDED Status: Active Protocol: Document 11/13/20 09:15 AB (Rec: 11/13/20 11:24 AB [id number]) Subjective Physical Therapy Visit Type Type Treatment Note Visit Start Time 09:15 Visit Stop Time 09:46 Total Visit Minutes 31 Number of HUMAN [employer] TEAM MEMBER Visits 0 Physical Therapy Visit Comments Patient Comments agreed to do PT; c/o increase knee and back pain Therapy Pain Assessment Pain When Pain Assessed At Rest Pain Present Pain Present Pain Reported Location Back Intensity 10 Right Knee Intensity 10 Scale Used Numeric (0 - 10) Pain Management Techniques Apply Cold,Distraction, Modification of Treatment,Re- positioning,Timing of Activity with Medications M4 PT-IP Mobility and Gait Start: 11/12/20 15:41 Freq: NEEDED Status: Active Protocol: Document 11/13/20 09:15 AB (Rec: 11/13/20 11:24 AB [id number]) PT-Bed Mobility Assessment Supine to Sit Supine to Sit Maximum Assistance,Head of Bed Elevated,Bedrails PT-Transfer Assessment Sit to and From Stand Sit to and from Stand Minimal Assistance,1 Person Assistance,Use of Upper Extremities Equipment Transfer Assistive Device Gait Belt,4 Wheeled Walker Orthotic/Prosthetic Devices or Brace: No Transfers Transfer Destination Bedside Commode Transfer Technique Stand Step Pivot Transfer Ability Level of Assist Minimal Assistance,1 Person Assistance,Use of Upper Extremities Comments Mobility Comments completed supine to sit max A and max cues. HOB elevated and pt used bed rail to assist . required increase rest breaks in between activities due to c/o increase back and knee pain. pt ambulated in room using 4WW 15 ft min A and cues. stated that she will try to sit up on chair for a few minutes but requested to use the toilet but stated that she cannot walk anymore. bedside commode set up and completed step transfer using 4WW min A and cues. completed sit to stand from bedside commode min A and transfered to chair using 4WW min A and cues. positioned on chair. call light and table placed within reach. Gait Assessment Gait Gait Assistance Required: Minimum Assistance Distance (Feet) 15 Able to Maintain Weight Bearing Status Yes During Gait Assistive Devices Assistive Device Gait Belt,4 Wheeled Walker Gait Deviations General Gait Pattern Antalgic,Decreased Stride Length,Decreased Feet Clearance,Flexed Trunk Factors Limiting Gait Function Factors Limiting Gait Function Decreased Activity Tolerance, Decreased Strength,Limited Range of Motion,Pain,Poor Balance,Poor Safety Awareness Comments Gait Comments pls refer to mobility section for details M5 PT-IP Objective Assessments Start: 11/12/20 15:41 Freq: NEEDED Status: Active Protocol: Document 11/12/20 16:28 AW (Rec: 11/12/20 17:14 AW [id number]) Orientation Orientation/Cognition Level of Alertness Alert Orientation Name,Day of Week,Place, Situation Language Function Ability No Deficits Noted Safety Awareness Understands Safety Issues Memory Description No Deficits Noted Gross Range of Motion Lower Extremity ROM Assessment Right Impaired Strength Lower Extremity Strength Assessment Right Impaired Hip 4-/5 Knee 3-/5 Ankle 4-/5 Sensation Assessment Sensation Gross Sensation Right LE Impaired,Left LE Impaired Light Touch Impaired Proprioception (Position) Impaired Sensation Description Numbness,Burning,Pain Comments Sensation Comments Pt has neuropathy affecting bilateral feet up to malleoli. On evaluation, pt had impaired light touch sensation from buttocks to mid thigh but was able to perceive pressure. M6 PT-IP Treatment Start: 11/12/20 15:41 Freq: NEEDED Status: Active Protocol: Document 11/13/20 09:15 AB (Rec: 11/13/20 11:24 AB [email or web address]) Physical Therapy Treatment Exercises Exercises Heel Slides Education Education Provided Weight Bearing Status,Safety M7 PT-IP Assessment and Plan Start: 11/12/20 15:41 Freq: NEEDED Status: Active Protocol: Document 11/13/20 09:15 AB (Rec: 11/13/20 11:24 AB [id number]) PT Summary Assessment and Plan Potential Rehabilitation Potential Fair Summary Impairments Pain,ROM,Strength,Balance, Coordination,Sensation,Tone, Cognition,Bed Mobility, Transfers,Gait,Activity Tolerance Progress Towards Goals Slow Progress due to Pain,Slow Progress due to Activity Tolerance Assessment Summary pt requiring min A with mobility and unable to tolerate much activities with c/o increase pain limiting mobility. will continue to assess progress. pt stated that spouse can assist as needed but cannot be with her 26/01. pt may require SNF rehab at this time and needs to be more independent than current level to d/c safely back home. Goals Bed Mobility Goal Standby Assistance Transfer Goal Standby Assistance Gait Goal Standby Assistance Gait Distance 150 Days to Meet Goals 5 Frequency of Treatment Frequency Of Treatment Twice a Day Treatment Plan Physical Therapy Treatment Plan Bed Mobility Training,Transfer Training,Gait Training, Therapeutic Exercise,Balance Retraining,Post Op Education, Discharge Planning,Hot or Cold Pack,Neuromuscular Re-ed, Coordination Retraining,Manual Therapy Precautions Other Precautions RLE WBAT Recommendations To Nursing Amount of Assist Needed 1 Person Assist Discharge Recommendations PT Discharge Recommendations Home Health,Home vs SNF Transportation Needs at Discharge Private Vehicle,Wheelchair/ Cabulance
[2020-11-13] MEDS: ASPIRIN EC 81 MG TABLET PO ×2 (09:32→22:20)
--- NOTE | 2020-11-13 09:34 | PC.NURSE ---
Day shift: Pain in rt knee, back, neck and bilat shoulder discussed w/ PA Neetu this AM. No changes in pain management made at this time. On pain reassessment for starting pain 03/15 pain stated 03/15. SHe did say that the muscle relaxer helped w/ her back spasms. She is OOB w/ PT at this time and she can be heard moaning at times. Will continue to monitor. No nausea this AM after breakfast. Sitting in chair and call light in reach.
[2020-11-13 12:30] VITALS: BP 161/72; PULSE 88; RESP 16; TEMP 36.6; O2SAT 93
--- NOTE | 2020-11-13 12:50 | PT.IPTN ---
Current Diagnoses Unilateral primary osteoarthritis, right knee (11/12/20) Derangement of unspecified medial meniscus due to old tear or injury, right knee (11/12/20) Osteonecrosis, unspecified (11/12/20) Surgery Performed Operation Date: 11/12/20 10:45 Actual Procedures p Total Knee Arthroplasty(Right) - Venancio Rodriguez MD Physical Therapy Treatment Note M2 PT-IP Current Condition Start: 11/12/20 15:41 Freq: NEEDED Status: Active Protocol: Document 11/12/20 16:28 AW (Rec: 11/12/20 17:14 AW [id number]) Physical Therapy Current Condition Current Condition Evaluation Date 11/12/20 Treatment Diagnosis R TKA; difficulty in walking Onset Date 11/12/20 Precautions Other Precautions falls Weight Bearing Status Weight Bearing Status Weight Bear as Tolerated M3 PT-IP Subjective Start: 11/12/20 15:41 Freq: NEEDED Status: Active Protocol: Document 11/13/20 12:50 AB (Rec: 11/13/20 14:34 AB [id number]) Subjective Physical Therapy Visit Type Type Treatment Note Visit Start Time 12:50 Visit Stop Time 13:15 Total Visit Minutes 25 Number of STREETSWEEPER OPERATOR Visits 0 Physical Therapy Visit Comments Patient Comments pt is agreeable to do PT Therapy Pain Assessment Pain When Pain Assessed At Rest Pain Present Pain Present Pain Reported Location Back Intensity 8 Right Knee Intensity 8 Scale Used Numeric (0 - 10) Pain Management Techniques Distraction,Modification of Treatment,Re-positioning, Timing of Activity with Medications M4 PT-IP Mobility and Gait Start: 11/12/20 15:41 Freq: NEEDED Status: Active Protocol: Document 11/13/20 12:50 AB (Rec: 11/13/20 14:34 AB [id number]) PT-Bed Mobility Assessment Supine to Sit Supine to Sit Moderate Assistance,Maximum Assistance,1 Person Assistance ,Head of Bed Elevated,Bedrails PT-Transfer Assessment Sit to and From Stand Sit to and from Stand Minimal Assistance,1 Person Assistance,Use of Upper Extremities Equipment Transfer Assistive Device Gait Belt,4 Wheeled Walker Orthotic/Prosthetic Devices or Brace: No Transfers Transfer Destination Toilet Transfer Technique ambulated using 4WW Transfer Ability Level of Assist Contact Guard Assistance, Minimal Assistance,1 Person Assistance,Use of Upper Extremities Comments Mobility Comments pt completed bed mobility supine to sit with HOB elevated mod to max A for RLE. c/o increase RLE knee pain. completed sit to stand min and cues and ambulated in room ~ 30 ft using 4WW CGA to min A. slow french with increase forward flexion during ambulation. pt also c/o chronic back pain. pt requested to use the toilet and ambulated to the toilet using 4WW CGA to min A. completed sit to stand using grab bar min A and ambulated to the chair using 4WW CGA. pt rested and agreed to walk again and completed using 4WW 30 ft CGA to min A. pt requested to sit on chair. call light and table placed within reach. set up caregiver training tomorrow at ~ 9 am and pt calling spouse to inform. informed pt regarding possible SNF and pt refused. stated that her sister from [place] will be coming in november 20 to stay with her and assist her. also informed pt regarding ambulation tolerance and pt stated that she has a w/c that she can use at home. Gait Assessment Gait Gait Assistance Required: Contact Guard Assist,Minimum Assistance Distance (Feet) 30 Able to Maintain Weight Bearing Status Yes During Gait Assistive Devices Assistive Device Gait Belt,4 Wheeled Walker Orthotic/Prosthetic Devices or Brace: No Gait Deviations General Gait Pattern Antalgic,Decreased Stride Length,Decreased Feet Clearance,Flexed Trunk,Step-to Gait Factors Limiting Gait Function Factors Limiting Gait Function Decreased Activity Tolerance, Decreased Strength,Limited Range of Motion,Pain,Poor Balance,Poor Safety Awareness Comments Gait Comments pls refer to mobility section for details M5 PT-IP Objective Assessments Start: 11/12/20 15:41 Freq: NEEDED Status: Active Protocol: Document 11/12/20 16:28 AW (Rec: 11/12/20 17:14 AW [id number]) Orientation Orientation/Cognition Level of Alertness Alert Orientation Name,Day of Week,Place, Situation Language Function Ability No Deficits Noted Safety Awareness Understands Safety Issues Memory Description No Deficits Noted Gross Range of Motion Lower Extremity ROM Assessment Right Impaired Strength Lower Extremity Strength Assessment Right Impaired Hip 4-/5 Knee 3-/5 Ankle 4-/5 Sensation Assessment Sensation Gross Sensation Right LE Impaired,Left LE Impaired Light Touch Impaired Proprioception (Position) Impaired Sensation Description Numbness,Burning,Pain Comments Sensation Comments Pt has neuropathy affecting bilateral feet up to malleoli. On evaluation, pt had impaired light touch sensation from buttocks to mid thigh but was able to perceive pressure. M6 PT-IP Treatment Start: 11/12/20 15:41 Freq: NEEDED Status: Active Protocol: Document 11/13/20 12:50 AB (Rec: 11/13/20 14:34 AB [id number]) Physical Therapy Treatment Exercises Exercises Heel Slides Education Education Provided Safety M7 PT-IP Assessment and Plan Start: 11/12/20 15:41 Freq: NEEDED Status: Active Protocol: Document 11/13/20 12:50 AB (Rec: 11/13/20 14:34 AB [id number]) PT Summary Assessment and Plan Potential Rehabilitation Potential Good Summary Impairments Pain,ROM,Strength,Balance, Coordination,Sensation,Tone, Cognition,Bed Mobility, Transfers,Gait,Activity Tolerance Progress Towards Goals Slow Progress due to Pain Assessment Summary pt requiring mod to max A for bed mobility and CGA to min A with ambulation using 4WW. caregiver training set up for tomorrow at 9 am. pt stated that she does not want to go to SNF and that her sister from [place] will be coming in from [facility] to stay and assist her November 20. will continue to assess progress. Goals Bed Mobility Goal Standby Assistance Transfer Goal Standby Assistance Gait Goal Standby Assistance Gait Distance 150 Days to Meet Goals 5 Frequency of Treatment Frequency Of Treatment Twice a Day Treatment Plan Physical Therapy Treatment Plan Bed Mobility Training,Transfer Training,Gait Training, Therapeutic Exercise,Balance Retraining,Post Op Education, Discharge Planning,Hot or Cold Pack,Neuromuscular Re-ed, Coordination Retraining,Manual Therapy Precautions Other Precautions RLE WBAT Recommendations To Nursing Amount of Assist Needed 1 Person Assist Discharge Recommendations PT Discharge Recommendations Home Health,Home vs SNF Transportation Needs at Discharge Private Vehicle,Wheelchair/ Cabulance
[2020-11-13 15:25] VITALS: BP 153/67; PULSE 97; RESP 18; TEMP 36.9; O2SAT 90
[2020-11-13] MEDS: DICYCLOMINE 10 MG CAPSULE 20 MG PO ×2 (16:45→22:21)
[2020-11-13] MEDS: OXYCODONE IR 10 MG TABLET PO (16:45)
[2020-11-13] MEDS: INSULIN LISPRO 100 UNIT/ML 3ML VIAL 20 UNIT SUBCUT (16:46)
[2020-11-13] MEDS: INSULIN GLARGINE 100 UNIT/ML 3ML PEN 50 UNIT SUBCUT (16:55)
--- NOTE | 2020-11-13 17:03 | CM.DANOTE ---
DCP ASSESSMENT: Patient is a 55 year-old female admitted for Right Total Knee Arthroplasty. PCP is Robin Brito. Primary Payer is [employer] Medicare Advantage and Medicaid. COMPANION CAREGIVER Student met with patient at bedside this date, she was in pain but, alert and oriented. Patient has some assistance from Roderick her life partner for chores around the house. But, does complete most ADL?s and was driving at baseline. Physical therapy recommendations vary from SNF to Home with home health. Patient?s preference is home. PLAN: CM Team to continue to follow and assess for D/C plan Home with outpatient PT vs home health. If HH indicated will need F2F and order. Outpatient? therapy preferred and scheduled to begin on 11-22-20. MAYO Dooley MSW Student Discharge Planning/Care Management CM Discharge Assessment Start: 11/13/20 15:49 Freq: Status: Active Protocol: Document 11/13/20 15:50 AL (Rec: 11/13/20 15:53 AL [id number]) Discharge Planning Assessment Assigned Mechanical Designer MAYO Hansen Student Contact Information Roderick Gamboa , Life partner Advance Directives? No History Provided By Patient,Medical Record Has Patient been admitted in last 30 No days? Prior Living Arrangements Apartment/Condo Household Members significant other Type of transporation used prior to Drives own vehicle admit Comment Roderick will provide transporation at time of D/C Independent with ADL's Yes Is patient alert and oriented? Yes Needs Assistance With Home Chores / Shopping Comment Roderick assistce DME Already Rented / Owned FWW / Walker Patient/Family Preference OP PT Therapy Comment Has Outpaitient physical therapy scheduled for 11/22/20 and will continue to engage in pt here at hospital Barriers to Discharge No Discharge Plan Home Transportation Arrangement Roderick Life Partner will provide transportation Whiteboard Updated in Patient Room with Yes name and ext. # of Mechanical Designer Review Status In Process Pre-Anesthesia Assessment Start: 11/06/20 11:46 Freq: Status: Active Protocol: Document 11/06/20 11:46 CAB (Rec: 11/06/20 12:16 CAB [id number]) Pre-Anesthesia Assessment PAC Comment Agoraphobia Patient Information Reviewed Via Phone Assessment Assessment Completed With Patient Comment No pre-op labs/EKG found. COVID screen @ [facility] 11/10 Primary Care Provider Robin Holder Seen Specialist in Last 12 Months Yes Specialist Seen Orthopedist Primary Language German Prisoner Classification Interviewer Required No Height 157.48 cm Weight 100.698 kg Body Mass Index (BMI) 40.6 Visual Assist Glasses Dentition Type Full- Upper & Lower Barriers to Learning None Hx Anesthesia Reactions No Hx Family Anesthesia Reaction No Hx Malignant Hyperthermia No Hx Blood Transfusions No Anesthesia Review Requested No alcohol intake never Smoking Status Former smoker how long ago did patient quit smoking Quit 7 months ago, occasional drag off 's cigarette Substance Use Type does not use Pain Present Pain Reported Musculoskeletal Symptoms Abnormal Gait,Back Pain,Joint Pain,Muscle Spasms,Neck Pain, Numbness,Radiating Pain into Limb,Tingling History of Falling (Recent or History of Yes ) Patient is completely paralyzed or No completely immobile Prosthesis or Orthotic Device Cane,Front Wheel Walker, Wheelchair Mental Status Oriented to own ability Is patient on oxygen? No Does patient have AGUERO/SOB Yes: With anxiety/panic attacks Hx Sleep Apnea Yes: My doctor said I don't need it Currently Taking a Beta Mason No Can You Climb a Flight of Stairs Without Yes SOB Hx Chest Pain No Hx SOB Yes: With anxiety/panic attacks Hx Syncope or Dizziness No Anti-Coagulant Therapy No Has a Crepe Machine Operator No Cardiac Testing No Hx Pacemaker/ICD No Pacemaker Rep Required? No Cardiac Clearance Received Not Applicable Diet Type At Home Regular dysphagia No Gastrointestinal Symptoms Reflux Urinary Catheter Present No Hx Urinary Self Catheterization No Diabetes Yes HgbA1C 6.4 Comment Per pt Patient No Lactating No Hx Drug Resistant Organism No Presence of External or Internal Medical Yes: Cervical hardware Devices Have you had any close contact with No someone diagnosed with COVID-19? Marital Status Lives With significant other Prior Living Arrangements Apartment/Condo Support System Child/Children,Significant Other Does the Patient Have Assistance After Yes Surgery Patient Discharge Plan Description Return Home Comment Pt advised 1 night length of stay per surgeon Feels Safe in Current Environment Yes Been Physically Hurt or Threatened By a No Person in Current Environment Do you have thoughts of harming yourself Vague or others? Are you currently considering suicide? No: I wouldn't act on it Do you have a plan to hurt yourself or No Plan others? If Yes, Provider Notified No Do You Have Any Spiritual Beliefs That No May Affect Your HC Choices? Do You Have Any Cultural Practices That No May Affect Your HC Choices? Comment Faith Who Can We Speak to About Patient's Care Family, friends Identifying Code for Release of Patient Declines to issue Information Health Care Proxy/Next of Kin Dell (S.O.) Health Care Proxy Emergency Contact Name Dell (S.O.), Manjula (daughter ) Emergency Contact Advance Directives? No Power of Rim Buster No PAC Instructions Bring CPAP/BIPAP,Diabetes instructions,Do not shave/clip surgical site,Durable medical equipment,Medications to take /avoid,Nasal antibiotic,No ETOH/petroleum product on skin DOS,NPO,Post-op transportation,Pre-surgical wash,Sensory aids,Sturdy shoes /comfortable clothes,Do not bring valuables and remove jewelry Comment Pt given OPD # for any diabetic questions/concerns dos
--- NOTE | 2020-11-13 20:04 | PC.NURSE ---
Addendum entered by Maddie Cisneros R.N. 11/13/20 23:38: Pt. still drowsy, snoring, but oxygen sat 99% on 2LNC. special education kindergarten teacher RN aware and will titrate oxygen. Addendum entered by Maddie Cisneros R.N. 11/13/20 22:45: Pt. drowsy in evening, arousable but drifts back to sleep. Apneic pauses noted; pt said she has been told that she has sleep apnea but she doesn't wear a CPAP. Pulse ox 88%; 2 LNC applied. Narcotic pain and anxiety meds held at bedtime due to sleepiness and pulse ox. Original Note: Report received, care assumed 1530. Pt reports 8/10 pain in right knee (acute), and back (chronic). Discussed pain management options, including the goal of weaning off the IVP pain meds towards possible discharge tomorrow. When alternating PO pain meds, pt reports pain decreased to 6, which is her goal. Up to chair with 1 person assist and FWW. Pain increased with activity and pt requested IVP pain meds again.
[2020-11-13 22:15] VITALS: BP 128/84; PULSE 87; RESP 17; TEMP 36.4; O2SAT 90
[2020-11-13] MEDS: QUETIAPINE 100 MG TABLET 600 MG PO (22:23)
[2020-11-14] VITALS: BP 140/68; PULSE 85; RESP 18; TEMP 36.3; O2SAT 92
[2020-11-14] MEDS: IBUPROFEN 400 MG TABLET PO ×4 (01:53→14:17)
[2020-11-14] MEDS: HYDROMORPHONE 2 MG TABLET PO ×3 (03:28→15:32)
[2020-11-14 03:46] VITALS: BP 147/91; PULSE 91; RESP 16; TEMP 36.2; O2SAT 92
[2020-11-14] MEDS: MORPHINE ER 30 MG TABLET PO (05:15)
--- NOTE | 2020-11-14 05:50 | PC.NURSE ---
Shift note: Patient was drowsy but arousable and appropriate for majority of shift. Has episodes of snoring and desaturations, titrated off and on oxygen during shift. At 0315 patient reports 8/10 pain, requesting both dilaudid PO and oxycodone PO. Educated patient that at this time would only be administering one PO narcotic, patient asked for dilaudid PO. During reassessment, patient appeared to be resting comfortably, snoring, and requiring 1L O2 by NC. When assessing patient for oxycontin med pass patient reported pain at 8/10 but appeared to be falling asleep during conversation. Charted per patient's report. At reassessment, patient appears to be resting comfortably, snoring.
[2020-11-14] MEDS: LEVOTHYROXINE 100 MCG TABLET 200 MCG PO (06:12)
--- NOTE | 2020-11-14 07:21 | PM.PNPO.1 ---
Subjective Subjective Date Patient Seen: 11/14/20 Time Patient Seen: 07:21 Interval history: The patient reports she is still having significant discomfort but is trying hard in physical therapy. Exam Vital Signs (past 8 hours): - 11/14/20 00:00 11/14/20 03:46 Temperature 97.3 F L 97.2 F L Pulse Rate 85 91 H Respiratory Rate 18 16 Blood Pressure 140/68 147/91 H Pulse Oximetry 92 92 Oxygen Delivery Method Room Air Oxygen Flow Rate 0 Narrative Exam Narrative: Right knee wound is dressed with a small spot of drainage on the bandage. Calf is soft. Light touch and motion are intact in the right lower extremity. Objective Labs Result Diagrams: 11/13/20 06:50 PFS Medical History Acid reflux ADD (attention deficit disorder) Agoraphobia Anxiety Bipolar 2 disorder COPD (chronic obstructive pulmonary disease) Depression Diabetes Fibromyalgia Hypothyroid Neuropathy Old complex tear of medial meniscus of right knee RAMIRO (obstructive sleep apnea) Osteoarthritis Pneumonia Post-menopausal PTSD (post-traumatic stress disorder) Sciatica Surgical History History of bilateral tubal ligation History of section History of surgery (~2006) Hx of appendectomy Hx of cholecystectomy Hx of eye surgery Hx of foot surgery (09/03/07) Hx of fusion of cervical spine Social History household members: significant other Smoking Status: Former smoker alcohol intake: never Assessment & Plan Post-op Postoperative Procedures: Procedures Operation Date: 11/12/20 10:45 Actual Procedures Side Surgeon p Total Knee Arthroplasty Right Venancio Rodriguez MD Postoperative day: 2 Postoperative status: doing well and marginal pain control Postoperative status narrative: The patient is making progress postoperatively but this is limited by her poor pain control. According to the physical therapy notes she is still possibly going to need a retirement facility. She does have family coming to help with her care at home in several days. Postoperative plan: routine post-op care and ambulate Postoperative plan narrative: We will continue physical therapy for another 24 hours in the hospital. Tomorrow she will be discharged either to a retirement facility or to home depending on her progress in PT. The patient understands the plan. Time Spent With Patient Time with patient: less than 15 minutes
[2020-11-14 07:38] VITALS: BP 140/80; PULSE 85; RESP 14; TEMP 36.1; O2SAT 97
[2020-11-14] MEDS: GABAPENTIN 300 MG CAPSULE 900 MG PO ×2 (08:19→14:18)
[2020-11-14] MEDS: ASPIRIN EC 81 MG TABLET PO (08:19)
[2020-11-14] MEDS: BACLOFEN 10 MG TABLET PO ×2 (08:20→14:18)
[2020-11-14] MEDS: DULOXETINE 30 MG CAPSULE 60 MG PO (08:20)
[2020-11-14] MEDS: ACETAMINOPHEN 325 MG TABLET 650 MG PO ×2 (08:20→14:17)
[2020-11-14] MEDS: DOCUSATE 100 MG CAPSULE PO (08:21)
[2020-11-14] MEDS: METFORMIN HCL 500 MG TABLET PO (08:21)
[2020-11-14] MEDS: OXYCODONE IR 10 MG TABLET PO ×2 (08:22→11:42)
--- NOTE | 2020-11-14 09:30 | PT.IPTN ---
Current Diagnoses Unilateral primary osteoarthritis, right knee (11/13/20) Derangement of unspecified medial meniscus due to old tear or injury, right knee (11/13/20) Osteonecrosis, unspecified (11/13/20) Surgery Performed Operation Date: 11/12/20 10:45 Actual Procedures p Total Knee Arthroplasty(Right) - Venancio Rodriguez MD Physical Therapy Treatment Note M2 PT-IP Current Condition Start: 11/12/20 15:41 Freq: NEEDED Status: Active Protocol: Document 11/12/20 16:28 AW (Rec: 11/12/20 17:14 AW [id number]) Physical Therapy Current Condition Current Condition Evaluation Date 11/12/20 Treatment Diagnosis R TKA; difficulty in walking Onset Date 11/12/20 Precautions Other Precautions falls Weight Bearing Status Weight Bearing Status Weight Bear as Tolerated M3 PT-IP Subjective Start: 11/12/20 15:41 Freq: NEEDED Status: Active Protocol: Document 11/14/20 09:00 SP (Rec: 11/14/20 13:52 SP [id number]) Subjective Physical Therapy Visit Type Type Treatment Note Visit Start Time 09:00 Visit Stop Time 09:30 Total Visit Minutes 30 Notes DION Sharpe completed caregiver training support throughout tx required. Number of CLIENT RENEWAL SPECIALIST Visits 1 Physical Therapy Visit Comments Patient Comments pt is agreeable to do PT Patient Goals Return home with SO support Therapy Pain Assessment Pain When Pain Assessed At Rest Pain Present Pain Present Pain Reported Location Back Intensity 8 Scale Used Numeric (0 - 10) Description Acute,Spasm,With Movement Pain Behaviors Facial Grimacing,Holding Area Pain Management Techniques Distraction,Re-positioning, Timing of Activity with Medications Right Knee Intensity 5 Scale Used Numeric (0 - 10) Pain Management Techniques Distraction,Modification of Treatment,Re-positioning, Timing of Activity with Medications M4 PT-IP Mobility and Gait Start: 11/12/20 15:41 Freq: NEEDED Status: Active Protocol: Document 11/14/20 09:00 SP (Rec: 11/14/20 13:52 SP [id number]) PT-Bed Mobility Assessment Rolling Type of Rolling Roll to Right Level of Assist Contact Guard Assistance,1 Person Assistance Supine to Sit Supine to Sit Standby Assistance Sit to Supine Sit to Supine Contact Guard Assistance,1 Person Assistance Scooting Scooting to Edge of Bed Minimal Assistance PT-Transfer Assessment Sit to and From Stand Sit to and from Stand Standby Assistance,1 Person Assistance,Use of Upper Extremities Equipment Transfer Assistive Device Gait Belt,4 Wheeled Walker Orthotic/Prosthetic Devices or Brace: No Transfers Transfer Destination Bed,Chair Transfer Technique ambulated using 4WW Transfer Ability Level of Assist Standby Assistance,Contact Guard Assistance,1 Person Assistance,Use of Upper Extremities Comments Mobility Comments Pt was seated in chair when arrived. Sit>stand using fWW, SPT chair> bed sBA, sit>supine sBA pt using gait belt on RLE for self mobility and center self. Instructed RLE postop exercises with pt using gait belt for self performance. Sit >supine, scoot to EOB Min A for RLE support by SO so can self mobility BUE. Sit>stand SBA and gait further distance into hallway approx 50 ft total with 3 stop stand rests due to reporte LBP leaning forearms on FWW CGA 7-02/12 pain in back. Pt returned to chair when entered room stand> sit SBA with good hand placement. Provided cushion under BLe support. Pt had call light and all needs in reach before left, SO in room. Pt is ok to return home with SO to assist her as needed when medically cleared. Gait Assessment Gait Gait Assistance Required: Contact Guard Assist,Minimum Assistance Distance (Feet) 50 Able to Maintain Weight Bearing Status Yes During Gait Assistive Devices Assistive Device Gait Belt,4 Wheeled Walker Orthotic/Prosthetic Devices or Brace: No Gait Deviations General Gait Pattern Antalgic,Decreased Stride Length,Decreased Feet Clearance,Flexed Trunk,Step-to Gait Factors Limiting Gait Function Factors Limiting Gait Function Decreased Activity Tolerance, Decreased Strength,Limited Range of Motion,Pain,Poor Balance,Poor Safety Awareness Comments Gait Comments gait 50 ft using FWW SBA- CGA, Cued for R knee flexion and heel toe patterning. Stair Climbing Assessment Comments Stair Climbing Comments Not assessed. No stairs at home. PT-Balance Assessment Sitting Balance and Reactions Static Sitting Balance Ability Good Dynamic Sitting Balance Ability Good Standing Balance and Reactions Static Standing Balance Ability Good Dynamic Standing Balance Ability Fair Device Used FWW M5 PT-IP Objective Assessments Start: 11/12/20 15:41 Freq: NEEDED Status: Active Protocol: Document 11/12/20 16:28 AW (Rec: 11/12/20 17:14 AW [id number]) Orientation Orientation/Cognition Level of Alertness Alert Orientation Name,Day of Week,Place, Situation Language Function Ability No Deficits Noted Safety Awareness Understands Safety Issues Memory Description No Deficits Noted Gross Range of Motion Lower Extremity ROM Assessment Right Impaired Strength Lower Extremity Strength Assessment Right Impaired Hip 4-/5 Knee 3-/5 Ankle 4-/5 Sensation Assessment Sensation Gross Sensation Right LE Impaired,Left LE Impaired Light Touch Impaired Proprioception (Position) Impaired Sensation Description Numbness,Burning,Pain Comments Sensation Comments Pt has neuropathy affecting bilateral feet up to malleoli. On evaluation, pt had impaired light touch sensation from buttocks to mid thigh but was able to perceive pressure. M6 PT-IP Treatment Start: 11/12/20 15:41 Freq: NEEDED Status: Active Protocol: Document 11/14/20 09:00 SP (Rec: 11/14/20 13:52 SP [id number]) Physical Therapy Treatment Exercises Exercises Ankle Pumps,Gluteal Sets,Heel Slides,Seated Knee Flexion/ Extension Education Education Provided Safety Other Treatments Other Treatment Performed weightbearing status, ROM and mobilitiy to decrease risk of DVT. M7 PT-IP Assessment and Plan Start: 11/12/20 15:41 Freq: NEEDED Status: Active Protocol: Document 11/14/20 09:00 SP (Rec: 11/14/20 13:52 SP [id number]) PT Summary Assessment and Plan Potential Rehabilitation Potential Good Status of Condition at Evaluation Evolving Summary Impairments Pain,ROM,Strength,Balance, Coordination,Sensation,Tone, Cognition,Bed Mobility, Transfers,Gait,Activity Tolerance Progress Towards Goals Slow Progress due to Pain,Slow Progress due to Activity Tolerance Assessment Summary Pt required Min A supine>sit for RLE support while scooting forward w/ BUE, sBA during all other mobiltiy using fWW SBA- CGA, due to LBP gait 50 ft. Pt is ok to return home with SO to assist her when medically cleared, already set up for outpt therapy. Goals Bed Mobility Goal Standby Assistance Transfer Goal Standby Assistance Gait Goal Standby Assistance Gait Distance 150 Days to Meet Goals 5 Frequency of Treatment Frequency Of Treatment Twice a Day Treatment Plan Physical Therapy Treatment Plan Bed Mobility Training,Transfer Training,Gait Training, Therapeutic Exercise,Balance Retraining,Post Op Education, Discharge Planning,Hot or Cold Pack,Neuromuscular Re-ed, Coordination Retraining,Manual Therapy Other Recommendations and Next Treatment gait further distance AD of Focus choice. Precautions Other Precautions RLE WBAT Recommendations To Nursing Amount of Assist Needed 1 Person Assist Discharge Recommendations PT Discharge Recommendations Home with Assistance, Outpatient PT Transportation Needs at Discharge Private Vehicle,Wheelchair/ Cabulance
[2020-11-14] MEDS: ALPRAZolam 0.5 MG TABLET 1 MG PO ×2 (09:50→14:17)
[2020-11-14] MEDS: DICYCLOMINE 10 MG CAPSULE 20 MG PO ×2 (09:50→14:16)
[2020-11-14 10:05] VITALS: O2SAT 97
[2020-11-14 10:10] VITALS: O2SAT 93
[2020-11-14 10:15] VITALS: O2SAT 96
--- NOTE | 2020-11-14 12:07 | P.DS_ITS ---
History of Present Illness History of Present Illness Date Patient Seen: 11/14/20 Time Patient Seen: 12:07 Chief complaint: Right Total Knee Arthroplasty *OPB* Narrative: Refer to previous HPI. Discharge Providers Provider Date of admission: 11/13/20 17:22 Discharge Date: 11/14/20 Primary care physician: Robin Holder MD Consults: 11/12/20 13:26 Consult to Discharge Planning Routine Comment: Consult to Physical Therapy Evaluate & Treat Comment: Physician Instructions: postop TKA protocol Consult to Respiratory Therapy Evaluate & Treat Comment: Physician Instructions: Evaluate and treat Discharge provider: Devendra De Anda PA-C Summary Hospital Course Discharge Diagnosis: Right knee avascular necrosis Status post right total knee arthroplasty Hospital Course: Patient was admitted to the hospital following the above-listed procedure for the above-listed diagnosis. Following the procedure the patient has been convalescing appropriately in her pain has been managed with current pain control regimen. The course of her time in the hospital the patient has denied fever, chills, nausea, chest pain, shortness of breath, or urinary retention. Patient successfully worked on ambulation with physical therapy with the assistance of a front wheeled walker. The patient has been taking aspirin 81 mg twice daily for DVT prophylaxis along with the assistance of SCDs. Patient has remained weight-bearing as tolerated with standard total knee replacement protocol. Status at Discharge Cognitive/behavioral status at discharge: oriented Functional status at discharge: uses cane/walker Overall status at discharge: patient is progressing back to baseline Exam Vital Signs (past 8 hours): - 11/14/20 07:38 11/14/20 10:05 11/14/20 10:10 Temperature 97.0 F L Pulse Rate 85 Respiratory Rate 14 Blood Pressure 140/80 Pulse Oximetry 97 97 93 11/14/20 10:15 Temperature Pulse Rate Respiratory Rate Blood Pressure Pulse Oximetry 96 Oxygen Delivery Method Nasal Cannula Oxygen Flow Rate 1 Narrative Exam Narrative: 55-year-old female postop day 3 status post right total knee arthroplasty. Patient is resting comfortably in room, is no acute distress, is alert and oriented x3. Skin is warm and dry, and the skin surrounding the incision site is free of erythema, warmth, induration, or discharge. Dressing over the incision is clean and dry, no strike through appreciated. Good sensation appreciated throughout the bilateral lower extremities to light touch. Hip flexion performed bilaterally, left greater than right. Palpable pulses appreciated, capillary refill less than 2 seconds. Calves are soft nontender, negative Homans sign. Ankle inversion, eversion, dorsiflexion, plantar flexion performed bilaterally without difficulty or discomfort. Other signs of DVT appreciated. Const General: cooperative, healthy appearing and comfortable Resp Effort & Inspection: normal respiratory effort and able to speak in complete sentences Skin General: no rashes or lesions noted Objective Labs Result Diagrams: 11/13/20 06:50 [facility] Medical History Acid reflux ADD (attention deficit disorder) Agoraphobia Anxiety Bipolar 2 disorder COPD (chronic obstructive pulmonary disease) Depression Diabetes Fibromyalgia Hypothyroid Neuropathy Old complex tear of medial meniscus of right knee RAMIRO (obstructive sleep apnea) Osteoarthritis Pneumonia Post-menopausal PTSD (post-traumatic stress disorder) Sciatica Surgical History History of bilateral tubal ligation History of section History of surgery (~2006) Hx of appendectomy Hx of cholecystectomy Hx of eye surgery Hx of foot surgery (09/03/07) Hx of fusion of cervical spine Social History household members: significant other Smoking Status: Former smoker alcohol intake: never Discharge Assessment & Plan Assessment and Plan Assessment: Patient is doing well. Plan of Treatment: Patient is to remain hand standard total knee replacement protocol and to remain weight-bearing as tolerated with the assistance of front wheeled walker. Following discharge from the hospital the patient is to continue outpatient physical therapy. Patient is to continue current pain management regimen as it is adequately controlling the patient's pain level at this time. Aspirin 81 mg twice daily is to be continued for 6 weeks for DVT prophylaxis. The patient is to follow up in clinic in 2 weeks following discharge from the hospital for her 1st postoperative visit. The patient is to contact the clinic with any concerns or questions. Any signs of increased redness, swelling, warmth, or discharge from around the incision site should be reported to the clinic. Discharge Plan Discharge Plan Patient Disposition: Home Provider Discharge Comment: Patient is cleared for discharge pending PT clearance. Discharge orders & Medications Prescriptions: New acetaminophen 325 mg Tablet 650 mg PO TID Qty: 90 RF: 0 aspirin 81 mg Tablet,Delayed Release (Dr/Ec) 81 mg PO BID Qty: 90 RF: 0 ibuprofen 400 mg Tablet 400 mg PO Q4HR Qty: 90 RF: 0 oxycodone 10 mg Tablet 10 mg PO Q3HR PRN (Reason: Pain, Severe (7-10)) Qty: 42 RF: 0 hydroxyzine pamoate [Vistaril] 25 mg capsule 25 mg PO BID PRN (Reason: pain (scale score 4-6)) Qty: 60 RF: 0 hydroxyzine pamoate 25 mg Capsule 25 mg PO Q6HR PRN (Reason: Nausea) Qty: 40 RF: 0 Continued metformin 500 mg Tablet 500 mg PO BID RF: 0 tizanidine 4 mg Tablet 4 mg PO TID PRN (Reason: Muscle spasms) RF: 0 baclofen 10 mg Tablet 10 mg PO TID RF: 0 ibuprofen [Advil] 200 mg Tablet 600 mg PO DAILY PRN (Reason: Migraines) RF: 0 morphine 30 mg Capsule 30 mg PO BID RF: 0 gabapentin 300 mg Tablet 900 mg PO TID RF: 0 dicyclomine 20 mg tablet 20 mg PO QID RF: 0 duloxetine 60 mg capsule,delayed release(DR/EC) 60 mg PO BID RF: 0 quetiapine 200 mg tablet 3 tab PO QHS RF: 0 levothyroxine 200 mcg tablet 1 tab PO DAILY RF: 0 alprazolam 1 mg Tablet 1 mg PO TID RF: 0 ondansetron HCl 4 mg Tablet 4 mg PO Q6H PRN (Reason: Nausea And Vomiting) RF: 0 promethazine 25 mg Tablet 25 - 50 mg PO Q6H PRN (Reason: Nausea And Vomiting) RF: 0 Humalog U-100 Insulin 18 - 25 units Sub-Q BID RF: 0 Lantus U-100 Insulin bottle 50 units Sub-Q QPM RF: 0 Follow up/Referrals: Robin Holder MD [Primary Care Provider] - Diet/Activity/Treatments Diet: Diet as Tolerated Activity: Weight-bearing as tolerated with the assistance of a front wheeled walker. Standard total knee replacement protocol. Skin/Wound/Dressing Care Report to your healthcare provider any signs of infection, such as:: chills, fever, night sweats, increased pain, unusual drainage and unusual redness Dressing: Dressing over the incision is to remain intact. Contact the clinic if the dressing is to become damaged, saturated, or removed. Other wound treatment: Avoid placing topical ointments over the incision site. Visit Report/Discharge Packet Instructions: DI for Heart Failure, DI for Knee Replacement, DI for Prescription Opioid Use Stand Alone Forms: Surgery Discharge Discharge Data Primary Care Provider: Robin Holder
--- NOTE | 2020-11-14 14:48 | PC.NURSE ---
Pt appears lethargic and sleeping during meals and activities during the shift but continues to report pain 7-8/10 in back and RLE. PT evaluated by MD at bedside this a.m., anticipating d/c in a.m SNF vs. Home pending evaluation by PT/OT. This shift patient able to participate with therapy and cleared for discharge home, with . Plan for one more session this afternoon with INTERNATIONAL STUDENT ADVISOR with at bedside at 1500 then d/c home. VSS, afebrile. Dressing with slight shadow, D/I. LS CTA. Pt reports she is unable to have a BM when she is at new places. A&O x4.
--- NOTE | 2020-11-14 15:28 | PT-IP ANOTE ---
ENAMEL FINISHER was notified by nursing that pt not leaving until 5 pm and will see ENAMEL FINISHER for pm tx. When arrived pt declined working with therapy, tired and in pain with already took a walk with before ENAMEL FINISHER arrival. Pt stated feels is prepared for returning home and ready for discharge. Pt had no further questions and ENAMEL FINISHER agreed she completed all required mobilitiy for returning home during am tx, verbal notification was given to nurse in am of recommendation able to return home with SO to assist her when medically cleared. ENAMEL FINISHER did not see pt for pm tx and discussed with nurse pt is able to return home when available to provided paperwork and education required for discharge.
--- NOTE | 2020-11-14 16:00 | PC.NURSE ---
Per james report, pt's iv discontinued for discharge to home and pt has passed afternoon session of P.T. Pt was provided with scripts and discharge instructions in written and verbal format. James RN medicated pt per request prior to discharge to home. Pt left hospital in stable condition with all belongings accounted for with spouse accompanying. This lyric writer escorted pt via wheelchair and pt's spouse to private vehicle and pt was carefully assisted into passenger seat.
== END 2020-11-14 15:45 | disposition home or self-care (01) | DRG 470 ==
LOC: OR 11-14 08:50 → AC 11-14 08:50
PROVIDERS: Admitting Provider Orthopaedic Surgery; PCP Family Medicine; Referring Provider Family Medicine; Visit Provider Orthopaedic Surgery
PROC: 0SRC0JZ Replacement of Right Knee Joint with Synthetic Substitute, Open Approach (ICD-10-PCS; CPT 27447; principal; 2020-11-12 10:45)
DX: M87.851 Other osteonecrosis, right femur (principal); F31.81 Bipolar II disorder; Z68.41 Body mass index [BMI] 40.0-44.9, adult; M17.11 Unilateral primary osteoarthritis, right knee; E66.9 Obesity, unspecified; E03.9 Hypothyroidism, unspecified; I10 Essential (primary) hypertension; M79.7 Fibromyalgia; E11.9 Type 2 diabetes mellitus without complications; F41.9 Anxiety disorder, unspecified; G89.18 Other acute postprocedural pain; Z87.891 Personal history of nicotine dependence; Z20.822 Contact with and (suspected) exposure to COVID-19
CPT/HCPCS: 36415; 73560; 82962; 85014; 85018; 87635; 94762; 97110; 97116; 97161; 97530; C1776; C9803; C9290; J0690; J1100; J1170; J1815; J2250; J2270; J2274; J2405; J2704; J3010

== ENCOUNTER 2021-11-02 12:27 | Emergency (ER) | payer OTHER, MEDICAID, SELFPAY ==
[2020-11-12 13:55] VITALS: BMI 40.6
[2021-11-02 12:46] VITALS: BP 145/75; PULSE 98; RESP 18; BMI 38.4
--- NOTE | 2021-11-02 12:47 | DI.RAD.S_ITS ---
PROCEDURE: XR LUMBAR SPINE 2-3V INDICATIONS: pain after fall TECHNIQUE: 3 views of the lumbar spine were acquired. COMPARISON: None. FINDINGS: Bones: 5 [id number] vertebrae are present. There is normal bony alignment. No vertebral body compression fractures. No suspicious bony lesions. Soft tissues: Overlying bowel gas pattern is normal. No suspicious soft tissue calcifications. IMPRESSION: No visualized acute fracture or dislocation. However, if clinical concern and/or pain persist, short interval imaging followup in 7-10 days is recommended, as occult injury cannot be definitively excluded. Dictated by: Tamie Tubbs M.D. on 11/02/2021 at 13:59 Approved by: Tamie Tubbs M.D. on 11/02/2021 at 13:59
--- NOTE | 2021-11-02 12:47 | ED.GENADULT ---
HPI - General Adult General Chief complaint: Extremity Injury, Lower Stated complaint: Right leg doesnt want to work Time Seen by Provider: 11/02/21 12:30 Source: patient Mode of arrival: Wheelchair Limitations: no limitations History of Present Illness HPI narrative: Patient is a 56-year-old female. Has chronic pain issues. Does have pain medication at home. One year ago had a right knee replaced. Has had cervical spinal stenosis in the past. She states that overnight she started have pain in her lower back that radiates down into her leg. She states that her foot is numb. She has difficulty standing because of the symptoms. No fevers. No urinary symptoms. No change in bowel habits. No rashes. She did take her pain medication at home without much improvement. She denies any trauma. Related Data Home Medications Medication Instructions Recorded Confirmed Humalog U-100 Insulin 18 - 25 units SUB-Q BID 11/18/17 11/12/20 Lantus U-100 Insulin 50 units SUB-Q QPM 11/18/17 11/12/20 alprazolam 1 mg tablet 1 mg PO TID 11/18/17 11/12/20 dicyclomine 20 mg tablet 20 mg PO QID 11/18/17 11/12/20 duloxetine 60 mg capsule,delayed 60 mg PO BID 11/18/17 11/12/20 release levothyroxine 200 mcg tablet 1 tab PO DAILY 11/18/17 11/12/20 ondansetron HCl 4 mg tablet 4 mg PO Q6H PRN 11/18/17 11/12/20 promethazine 25 mg tablet 25 - 50 mg PO Q6H PRN 11/18/17 11/12/20 quetiapine 200 mg tablet 3 tab PO QHS 11/18/17 11/12/20 baclofen 10 mg tablet 10 mg PO TID 11/09/20 11/12/20 gabapentin 300 mg tablet 900 mg PO TID 11/09/20 11/12/20 ibuprofen 200 mg tablet (Advil) 600 mg PO DAILY PRN 11/09/20 11/12/20 metformin 500 mg tablet 500 mg PO BID 11/09/20 11/12/20 morphine 30 mg capsule 30 mg PO BID 11/09/20 11/12/20 tizanidine 4 mg tablet 4 mg PO TID PRN 11/09/20 11/12/20 Previous Rx's Medication Instructions Recorded acetaminophen 325 mg tablet 650 mg PO TID #90 tab 11/14/20 aspirin 81 mg tablet,delayed 81 mg PO BID #90 tab 11/14/20 release hydroxyzine pamoate 25 mg capsule 25 mg PO Q6HR PRN #40 cap 11/14/20 hydroxyzine pamoate 25 mg capsule 25 mg PO BID PRN #60 cap 11/14/20 (Vistaril) ibuprofen 400 mg tablet 400 mg PO Q4HR #90 tab 11/14/20 oxycodone 10 mg tablet 10 mg PO Q3HR PRN #42 tab 11/14/20 prednisone 20 mg tablet 20 mg PO DAILY 5 Days #5 tab 11/02/21 Allergies Allergy/AdvReac Type Severity Reaction Status Date / Time hydrocodone Allergy Intermediate ITCHING, Verified 11/12/20 09:30 Rash amitriptyline AdvReac Severe Makes me Verified 11/12/20 09:30 very violent Review of Systems Constitutional Constitutional: Denies fever(s) Genitourinary Genitourinary: Reports system reviewed and no additional complaints, except as documented and Reports as per HPI Musculoskeletal Musculoskeletal: Reports system reviewed and no additional complaints, except as documented and Reports as per HPI Integumentary/Breasts Skin/Breast: Reports system reviewed and no additional complaints, except as documented and Reports as per HPI Neurologic Neurologic: Reports system reviewed and no additional complaints, except as documented and Reports as per HPI Hematologic/Lymphatic On Anticoagulants: No Patient History Medical History Acid reflux ADD (attention deficit disorder) Agoraphobia Anxiety Bipolar 2 disorder COPD (chronic obstructive pulmonary disease) Depression Diabetes Fibromyalgia Hypothyroid Neuropathy Old complex tear of medial meniscus of right knee RAMIRO (obstructive sleep apnea) Osteoarthritis Pneumonia Post-menopausal PTSD (post-traumatic stress disorder) Sciatica Surgical History History of bilateral tubal ligation History of section History of surgery (~2006) Hx of appendectomy Hx of cholecystectomy Hx of eye surgery Hx of foot surgery (09/03/07) Hx of fusion of cervical spine Social History household members: significant other Smoking Status: Former smoker alcohol intake: never Smoking Status: Former smoker alcohol intake frequency: 0-2 drinks per day Substance Use Type: does not use Exam Initial Vital Signs Initial Vital Signs: Vital Signs Pulse Rate 98 H 11/02/21 12:46 Respiratory Rate 18 11/02/21 12:46 Blood Pressure 145/75 H 11/02/21 12:46 Const General: cooperative HENMT Head: normal to inspection and normocephalic Resp Effort & Inspection: normal respiratory effort Back/Spine/Pelvis Thoracic/Lumbar Spine: paraspinal tenderness, No thoracic spinal tenderness and lumbar spinal tenderness Skin General: no rashes or lesions noted Other: Well-healed surgical scar anterior knee consistent with stated total hip surgery Neuro General: patient alert and patient awake Other: Decreased sensation to the light that is on the top and inside of the right foot. Also has decreased sensation anterior and posterior right lower leg. Anterior medial posterior upper leg. Extrem Other: Right ankle right knee and right hip unremarkable Psych Appearance: grossly normal and well kempt Course Orders Ordered: ED Orders 11/02/21 12:47 XR lumbar spine 2-3V Stat Vital Signs Vital signs: Vital Signs - 8 hr 11/02/21 12:46 Pulse Rate 98 H Respiratory Rate 18 Blood Pressure 145/75 H Medical Decision Making Imaging Data lumbar spine X-ray: Radiologist's Impression: [place] [address] XRay Report Signed Patient: Ofelia Stallings MR#: [id number] : 1965 Acct:[id number] Age/Sex: 56 / F Date of Service: 11/02/21 Loc: ED Accession Number: [id number] ?? Procedure: XR lumbar spine 2-3V Ordering Provider: Pedro Bonilla D.O. PROCEDURE:? XR LUMBAR SPINE 2-3V ? INDICATIONS:? pain after fall ? TECHNIQUE:? 3 views of the lumbar spine were acquired.? ? COMPARISON:? None. ? FINDINGS:? ? Bones:? 5 [id number] vertebrae are present.? There is normal bony alignment.? No vertebral body compression fractures.? No suspicious bony lesions.? ? Soft tissues:? Overlying bowel gas pattern is normal.? No suspicious soft tissue calcifications.? ? ? IMPRESSION:? No visualized acute fracture or dislocation. However, if clinical concern and/or pain persist, short interval imaging followup in 7-10 days is recommended, as occult injury cannot be definitively excluded. ? ? Dictated by: Tamie Tubbs M.D. on 11/02/2021 at 13:59 ? ? Approved by: Tamie Tubbs M.D. on 11/02/2021 at 13:59? MDM Narrative Medical decision making narrative: X-ray shows no signs fracture. Low suspicion for cauda equine. Low suspicion for infection. Upon further evaluation patient states that when she was testing the sensation in her leg she noticed that it was mostly on the top of her foot and on the outside of her foot and up the side of her lower extremity although it does not go above the knee. This would follow a lower lumbar nerve root distribution however it would be strange that it does not involve the upper leg and only the lower leg. No fevers. She is on a pain contract with her primary doctor. We will place her on steroids for the next couple days. She is an insulin-dependent diabetic and will check her blood sugars at home which she knows that the steroids can increase her blood sugars. She was given return precautions. She expressed understanding and agreement. Discharge Plan Departure Patient Disposition: Home Clinical Impression: Paresthesias Instructions: DI for Numbness/Tingling Activity Restrictions/Additional Instructions: Continue to take all of your medications as directed. We should put you on steroids for the next couple days. This can increase your blood sugars so be sure that your checking her blood sugars at home and also using your insulin. Contact your primary doctor for a follow-up. Return to the emergency department for any new or worsening symptoms. Prescriptions: New prednisone 20 mg tablet 20 mg PO DAILY 5 Days Qty: 5 0RF No Action metformin 500 mg Tablet 500 mg PO BID 0RF tizanidine 4 mg Tablet 4 mg PO TID PRN (Reason: Muscle spasms) 0RF baclofen 10 mg Tablet 10 mg PO TID 0RF ibuprofen [Advil] 200 mg Tablet 600 mg PO DAILY PRN (Reason: Migraines) 0RF morphine 30 mg Capsule 30 mg PO BID 0RF gabapentin 300 mg Tablet 900 mg PO TID 0RF acetaminophen 325 mg Tablet 650 mg PO TID Qty: 90 0RF aspirin 81 mg Tablet,Delayed Release (Dr/Ec) 81 mg PO BID Qty: 90 0RF ibuprofen 400 mg Tablet 400 mg PO Q4HR Qty: 90 0RF oxycodone 10 mg Tablet 10 mg PO Q3HR PRN (Reason: Pain, Severe (7-10)) Qty: 42 0RF hydroxyzine pamoate [Vistaril] 25 mg capsule 25 mg PO BID PRN (Reason: pain (scale score 4-6)) Qty: 60 0RF hydroxyzine pamoate 25 mg Capsule 25 mg PO Q6HR PRN (Reason: Nausea) Qty: 40 0RF dicyclomine 20 mg tablet 20 mg PO QID 0RF duloxetine 60 mg capsule,delayed release(DR/EC) 60 mg PO BID 0RF quetiapine 200 mg tablet 3 tab PO QHS 0RF levothyroxine 200 mcg tablet 1 tab PO DAILY 0RF alprazolam 1 mg Tablet 1 mg PO TID 0RF ondansetron HCl 4 mg Tablet 4 mg PO Q6H PRN (Reason: Nausea And Vomiting) 0RF promethazine 25 mg Tablet 25 - 50 mg PO Q6H PRN (Reason: Nausea And Vomiting) 0RF Humalog U-100 Insulin 18 - 25 units Sub-Q BID 0RF Lantus U-100 Insulin bottle 50 units Sub-Q QPM 0RF Rx Instructions: With dinner Referrals: Robin Holder MD [Primary Care Provider] -
--- NOTE | 2021-11-02 12:50 | ED.GENADULT ---
HPI - General Adult General Stated complaint: Right leg doesnt want to work Time Seen by Provider: 11/02/21 12:30 Source: patient Mode of arrival: Family Vehicle Limitations: no limitations Related Data Home Medications Medication Instructions Recorded Confirmed Humalog U-100 Insulin 18 - 25 units SUB-Q BID 11/18/17 11/12/20 Lantus U-100 Insulin 50 units SUB-Q QPM 11/18/17 11/12/20 alprazolam 1 mg tablet 1 mg PO TID 11/18/17 11/12/20 dicyclomine 20 mg tablet 20 mg PO QID 11/18/17 11/12/20 duloxetine 60 mg capsule,delayed 60 mg PO BID 11/18/17 11/12/20 release levothyroxine 200 mcg tablet 1 tab PO DAILY 11/18/17 11/12/20 ondansetron HCl 4 mg tablet 4 mg PO Q6H PRN 11/18/17 11/12/20 promethazine 25 mg tablet 25 - 50 mg PO Q6H PRN 11/18/17 11/12/20 quetiapine 200 mg tablet 3 tab PO QHS 11/18/17 11/12/20 baclofen 10 mg tablet 10 mg PO TID 11/09/20 11/12/20 gabapentin 300 mg tablet 900 mg PO TID 11/09/20 11/12/20 ibuprofen 200 mg tablet (Advil) 600 mg PO DAILY PRN 11/09/20 11/12/20 metformin 500 mg tablet 500 mg PO BID 11/09/20 11/12/20 morphine 30 mg capsule 30 mg PO BID 11/09/20 11/12/20 tizanidine 4 mg tablet 4 mg PO TID PRN 11/09/20 11/12/20 Previous Rx's Medication Instructions Recorded acetaminophen 325 mg tablet 650 mg PO TID #90 tab 11/14/20 aspirin 81 mg tablet,delayed 81 mg PO BID #90 tab 11/14/20 release hydroxyzine pamoate 25 mg capsule 25 mg PO Q6HR PRN #40 cap 11/14/20 hydroxyzine pamoate 25 mg capsule 25 mg PO BID PRN #60 cap 11/14/20 (Vistaril) ibuprofen 400 mg tablet 400 mg PO Q4HR #90 tab 11/14/20 oxycodone 10 mg tablet 10 mg PO Q3HR PRN #42 tab 11/14/20 Allergies Allergy/AdvReac Type Severity Reaction Status Date / Time hydrocodone Allergy Intermediate ITCHING, Verified 11/12/20 09:30 Rash amitriptyline AdvReac Severe Makes me Verified 11/12/20 09:30 very violent Patient History Medical History Acid reflux ADD (attention deficit disorder) Agoraphobia Anxiety Bipolar 2 disorder COPD (chronic obstructive pulmonary disease) Depression Diabetes Fibromyalgia Hypothyroid Neuropathy Old complex tear of medial meniscus of right knee RAMIRO (obstructive sleep apnea) Osteoarthritis Pneumonia Post-menopausal PTSD (post-traumatic stress disorder) Sciatica Surgical History History of bilateral tubal ligation History of section History of surgery (~2006) Hx of appendectomy Hx of cholecystectomy Hx of eye surgery Hx of foot surgery (09/03/07) Hx of fusion of cervical spine Social History household members: significant other Smoking Status: Former smoker alcohol intake: never Smoking Status: Former smoker alcohol intake frequency: 0-2 drinks per day Substance Use Type: does not use Course Orders Ordered: ED Orders 11/02/21 12:47 XR lumbar spine 2-3V Stat Discharge Plan Departure Prescriptions: No Action metformin 500 mg Tablet 500 mg PO BID 0RF tizanidine 4 mg Tablet 4 mg PO TID PRN (Reason: Muscle spasms) 0RF baclofen 10 mg Tablet 10 mg PO TID 0RF ibuprofen [Advil] 200 mg Tablet 600 mg PO DAILY PRN (Reason: Migraines) 0RF morphine 30 mg Capsule 30 mg PO BID 0RF gabapentin 300 mg Tablet 900 mg PO TID 0RF acetaminophen 325 mg Tablet 650 mg PO TID Qty: 90 0RF aspirin 81 mg Tablet,Delayed Release (Dr/Ec) 81 mg PO BID Qty: 90 0RF ibuprofen 400 mg Tablet 400 mg PO Q4HR Qty: 90 0RF oxycodone 10 mg Tablet 10 mg PO Q3HR PRN (Reason: Pain, Severe (7-10)) Qty: 42 0RF hydroxyzine pamoate [Vistaril] 25 mg capsule 25 mg PO BID PRN (Reason: pain (scale score 4-6)) Qty: 60 0RF hydroxyzine pamoate 25 mg Capsule 25 mg PO Q6HR PRN (Reason: Nausea) Qty: 40 0RF dicyclomine 20 mg tablet 20 mg PO QID 0RF duloxetine 60 mg capsule,delayed release(DR/EC) 60 mg PO BID 0RF quetiapine 200 mg tablet 3 tab PO QHS 0RF levothyroxine 200 mcg tablet 1 tab PO DAILY 0RF alprazolam 1 mg Tablet 1 mg PO TID 0RF ondansetron HCl 4 mg Tablet 4 mg PO Q6H PRN (Reason: Nausea And Vomiting) 0RF promethazine 25 mg Tablet 25 - 50 mg PO Q6H PRN (Reason: Nausea And Vomiting) 0RF Humalog U-100 Insulin 18 - 25 units Sub-Q BID 0RF Lantus U-100 Insulin bottle 50 units Sub-Q QPM 0RF Rx Instructions: With dinner Referrals: Robin Holder MD [Primary Care Provider] -
[2021-11-02 14:34] VITALS: BP 166/77; PULSE 90; O2SAT 97
== END 2021-11-02 14:37 | disposition home or self-care (01) ==
PROVIDERS: Emergency Provider Emergency Medicine; PCP Family Medicine
DX: R20.2 Paresthesia of skin (principal); Z88.5 Allergy status to narcotic agent; Z87.891 Personal history of nicotine dependence
CPT/HCPCS: 72100; 99281; 99283

== ENCOUNTER 2023-01-06 22:53 | Emergency (ER) | payer OTHER, MEDICAID, SELFPAY ==
[2020-11-12 13:55] VITALS: BMI 40.6
[2023-01-06 23:12] VITALS: BP 171/81; PULSE 89; RESP 16; TEMP 36.4; O2SAT 99; BMI 30.9
--- NOTE | 2023-01-07 01:10 | ED_ITS ---
HPI - Ear Problem General Chief complaint: Ear Stated complaint: rt ear pain, hard to hear Time Seen by Provider: 01/07/23 01:07 Source: patient Mode of arrival: Ambulatory History of Present Illness HPI Narrative: Patient is a 57-year-old female history of anxiety depression presenting today with right ear pain. She reports that she is been unable to hear out of it she just hears a whooshing in her ear. She has tried Arcenio pins in pin caps to get the ear wax out. She denies any fever chills no left ear pain. Related Data Home Medications Medication Instructions Recorded Confirmed Humalog U-100 Insulin 18 - 25 units SUBCUT BID 11/18/17 11/12/20 Lantus U-100 Insulin 50 units SUBCUT QPM 11/18/17 11/12/20 alprazolam 1 mg tablet 1 mg PO TID 11/18/17 11/12/20 dicyclomine 20 mg tablet 20 mg PO QID abdominal cramps 11/18/17 11/12/20 duloxetine 60 mg capsule,delayed 60 mg PO BID 11/18/17 11/12/20 release levothyroxine 200 mcg tablet 1 tab PO DAILY 11/18/17 11/12/20 ondansetron HCl 4 mg tablet 4 mg PO Q6H PRN Nausea And Vomiting 11/18/17 11/12/20 promethazine 25 mg tablet 25 - 50 mg PO Q6H PRN Nausea And 11/18/17 11/12/20 Vomiting quetiapine 200 mg tablet 3 tab PO QHS 11/18/17 11/12/20 baclofen 10 mg tablet 10 mg PO TID 11/09/20 11/12/20 gabapentin 300 mg tablet 900 mg PO TID 11/09/20 11/12/20 ibuprofen 200 mg tablet (Advil) 600 mg PO DAILY PRN Migraines 11/09/20 11/12/20 metformin 500 mg tablet 500 mg PO BID 11/09/20 11/12/20 morphine 30 mg capsule 30 mg PO BID 11/09/20 11/12/20 tizanidine 4 mg tablet 4 mg PO TID PRN Muscle spasms 11/09/20 11/12/20 Previous Rx's Medication Instructions Recorded acetaminophen 325 mg tablet 650 mg PO TID #90 tabs 11/14/20 aspirin 81 mg tablet,delayed 81 mg PO BID #90 tabs 11/14/20 release hydroxyzine pamoate 25 mg capsule 25 mg PO Q6HR PRN Nausea #40 caps 11/14/20 hydroxyzine pamoate 25 mg capsule 25 mg PO BID PRN pain (scale score 11/14/20 (Vistaril) 4-6) #60 caps ibuprofen 400 mg tablet 400 mg PO Q4HR #90 tabs 11/14/20 oxycodone 10 mg tablet 10 mg PO Q3HR PRN Pain, Severe 11/14/20 (7-10) #42 tabs Allergies Allergy/AdvReac Type Severity Reaction Status Date / Time hydrocodone Allergy Intermediate ITCHING, Verified 11/12/20 09:30 Rash amitriptyline AdvReac Severe Makes me Verified 11/12/20 09:30 very violent Review of Systems Review of Systems ROS Unobtainable: All systems reviewed & are unremarkable except as noted in HPI and below Patient History Medical History Acid reflux ADD (attention deficit disorder) Agoraphobia Anxiety Bipolar 2 disorder COPD (chronic obstructive pulmonary disease) Depression Diabetes Fibromyalgia Hypothyroid Neuropathy Old complex tear of medial meniscus of right knee RAMIRO (obstructive sleep apnea) Osteoarthritis Pneumonia Post-menopausal PTSD (post-traumatic stress disorder) Sciatica Surgical History History of bilateral tubal ligation History of section History of surgery (~2006) Hx of appendectomy Hx of cholecystectomy Hx of eye surgery Hx of foot surgery (09/03/07) Hx of fusion of cervical spine Social History household members: significant other Smoking Status: Current every day smoker alcohol intake: never Smoking Status: Current every day smoker tobacco type: cigarettes alcohol intake frequency: 0-2 drinks per day Substance Use Type: does not use Exam Initial Vital Signs Initial Vital Signs: Vital Signs Temperature 97.6 F 01/06/23 23:12 Pulse Rate 89 01/06/23 23:12 Respiratory Rate 16 01/06/23 23:12 Blood Pressure 171/81 H 01/06/23 23:12 Pulse Oximetry 99 01/06/23 23:12 Oxygen Delivery Method Room Air 01/06/23 23:12 GENERAL: Alert well-appearing 57-year-old female EAR: Right ear cerumen impaction normal external ear. Left ear within normal limits CARDIOVASCULAR: peripheral pulses in tact, cap refill <2 sec RESPIRATORY: No respiratory distress, speaks in full sentences without difficulty [ABDOMEN: Soft, nontender, no guarding or rebound] EXTREMITIES: Normal range of motion, no clubbing or edema. Neurovascularly intact NEUROLOGICAL: Cranial nerves II through XII grossly intact. Normal gait and speech. SKIN: Warm, dry, no petechiae, no rashes or lesions. Course Vital Signs Vital signs: Vital Signs - 8 hr 01/06/23 23:12 Temperature 97.6 F Pulse Rate 89 Respiratory Rate 16 Blood Pressure 171/81 H Pulse Oximetry 99 Oxygen Delivery Method Room Air Medical Decision Making [facility] Narrative Medical decision making narrative: The patient 57-year-old female presents today with right ear pain ongoing for 1 week. She is found have cerumen impaction. She reports that she is previously tried multiple mechanisms to get it out. I have strongly encouraged her not to dig it out but to use [id number] remedies. Discharge Plan Departure Patient Disposition: Home Clinical Impression: Impacted cerumen Instructions: Cerumen Impaction Activity Restrictions/Additional Instructions: *You have been diagnosed with cerumen impaction *What to do: Do not put Arcenio pins or pin caps in your ear this can cause severe trauma and be dangerous. Recommend [id number] ear wax removal *Continue to take medications as directed *Follow up with your primary care provider in 2-3 days or call [phone] *Return to ER if you should have increased pain or fever or any new, worsening or concerning symptoms Prescriptions: No Action metformin 500 mg Tablet 500 mg PO BID tizanidine 4 mg Tablet 4 mg PO TID PRN (Reason: Muscle spasms) baclofen 10 mg Tablet 10 mg PO TID ibuprofen [Advil] 200 mg Tablet 600 mg PO DAILY PRN (Reason: Migraines) morphine 30 mg Capsule 30 mg PO BID gabapentin 300 mg Tablet 900 mg PO TID acetaminophen 325 mg Tablet 650 mg PO TID Qty: 90 0RF aspirin 81 mg Tablet,Delayed Release (Dr/Ec) 81 mg PO BID Qty: 90 0RF ibuprofen 400 mg Tablet 400 mg PO Q4HR Qty: 90 0RF oxycodone 10 mg Tablet 10 mg PO Q3HR PRN (Reason: Pain, Severe (7-10)) Qty: 42 0RF hydroxyzine pamoate [Vistaril] 25 mg capsule 25 mg PO BID PRN (Reason: pain (scale score 4-6)) Qty: 60 0RF hydroxyzine pamoate 25 mg Capsule 25 mg PO Q6HR PRN (Reason: Nausea) Qty: 40 0RF dicyclomine 20 mg tablet 20 mg PO QID duloxetine 60 mg capsule,delayed release(DR/EC) 60 mg PO BID quetiapine 200 mg tablet 3 tab PO QHS levothyroxine 200 mcg tablet 1 tab PO DAILY alprazolam 1 mg Tablet 1 mg PO TID ondansetron HCl 4 mg Tablet 4 mg PO Q6H PRN (Reason: Nausea And Vomiting) promethazine 25 mg Tablet 25 - 50 mg PO Q6H PRN (Reason: Nausea And Vomiting) Humalog U-100 Insulin 18 - 25 units Sub-Q BID Lantus U-100 Insulin bottle 50 units Sub-Q QPM Rx Instructions: With dinner Referrals: Robin Holder MD [Primary Care Provider] - Stand Alone Forms: Patient Portal/API
[2023-01-07 01:20] VITALS: BP 138/74; PULSE 80; RESP 16; TEMP 36.6; O2SAT 98
== END 2023-01-07 01:21 | disposition home or self-care (01) ==
PROVIDERS: Emergency Provider Emergency Medicine; PCP Family Medicine
DX: H61.21 Impacted cerumen, right ear (principal)
CPT/HCPCS: 99281

== ENCOUNTER 2024-09-25 14:48 | Emergency (ER) | payer OTHER, MEDICAID, SELFPAY ==
[2020-11-12 13:55] VITALS: BMI 40.6
[2024-09-25 15:32] VITALS: BP 126/68; PULSE 92; RESP 18; TEMP 36.8; O2SAT 99; BMI 31.7
--- NOTE | 2024-09-25 15:39 | DI.RAD.S_ITS ---
PROCEDURE: XR FOOT LT MIN 3V INDICATIONS: pain, no trauma TECHNIQUE: 3 views of the foot were acquired. COMPARISON: None. FINDINGS: Bones: No fractures or dislocations. No suspicious bony lesions. Generalized degenerative changes are seen, which are worst along the Lisfranc joint. Plantar and Achilles calcaneal spurs are seen. Incidental note is made of an accessory ossicle, an os peroneum. Soft tissues: No tibiotalar joint effusion. Achilles tendon appears normal. IMPRESSION: Degenerative changes, a significant focal bony abnormality seen by plain film. Dictated by: Kun Celeste M.D. on 09/25/2024 at 15:03 Approved by: Kun Celeste M.D. on 09/25/2024 at 15:04
--- NOTE | 2024-09-25 17:42 | ED.EXTPRO ---
HPI - Extremity Problem <Iva Ba PA-C - Last Filed: 09/25/24 18:42> General Chief complaint: Extremity Problem,Nontraumatic Stated complaint: LT pain radiating to back Time Seen by Provider: 09/25/24 17:09 Source: patient Mode of arrival: Wheelchair History of Present Illness HPI Narrative: Ms. Stallings is a very pleasant 59-year-old female with a past medical history of uncontrolled type 2 diabetes, chronic pain on morphine sulfate and gabapentin, COPD, hypertension, bipolar, pituitary mass who presents to the emergency department for left foot pain, redness, swelling x 3 days. Patient states and records confirm that she was admitted to [facility] in [place] and Thursday for altered mental status and confirm of overdose. 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 States that while she was admitted she decided to sign out Against Medical Advice because they were not giving her her home dose pain medication. Reports that while she was at the hospital on Thursday is when she developed the pain of her left foot that was making it difficult for her to walk but she was very frustrated because she believes her foot pain was not being addressed. At this time she reports that she has pain of the left foot worse with weight-bearing and redness and swelling on the arch of the left foot. She denies any known trauma to this area. She has been applying hydrocortisone cream to this area which she believes is helping. She also has 2 small spots of circular rash on the right lower extremity as well. She denies any fevers chills nausea vomiting or difficulty urinating. Reports that she takes 30 mg morphine sulfate at home and gabapentin which have not resolved her left foot pain. Related Data Home Medications Medication Instructions Recorded Confirmed Humalog U-100 Insulin 18 - 25 units SUBCUT BID 11/18/17 11/12/20 Lantus U-100 Insulin 50 units SUBCUT QPM 11/18/17 11/12/20 alprazolam 1 mg tablet 1 mg PO TID 11/18/17 11/12/20 dicyclomine 20 mg tablet 20 mg PO QID abdominal cramps 11/18/17 11/12/20 duloxetine 60 mg capsule,delayed 60 mg PO BID 11/18/17 11/12/20 release levothyroxine 200 mcg tablet 1 tab PO DAILY 11/18/17 11/12/20 ondansetron HCl 4 mg tablet 4 mg PO Q6H PRN Nausea And Vomiting 11/18/17 11/12/20 promethazine 25 mg tablet 25 - 50 mg PO Q6H PRN Nausea And 11/18/17 11/12/20 Vomiting quetiapine 200 mg tablet 3 tab PO QHS 11/18/17 11/12/20 baclofen 10 mg tablet 10 mg PO TID 11/09/20 11/12/20 gabapentin 300 mg tablet 900 mg PO TID 11/09/20 11/12/20 ibuprofen 200 mg tablet (Advil) 600 mg PO DAILY PRN Migraines 11/09/20 11/12/20 metformin 500 mg tablet 500 mg PO BID 11/09/20 11/12/20 morphine 30 mg capsule 30 mg PO BID 11/09/20 11/12/20 tizanidine 4 mg tablet 4 mg PO TID PRN Muscle spasms 11/09/20 11/12/20 Previous Rx's Medication Instructions Recorded acetaminophen 325 mg tablet 650 mg (2 x 325 mg) PO TID #90 tabs 11/14/20 aspirin 81 mg tablet,delayed 81 mg PO BID #90 tabs 11/14/20 release hydroxyzine pamoate 25 mg capsule 25 mg PO Q6HR PRN Nausea #40 caps 11/14/20 hydroxyzine pamoate 25 mg capsule 25 mg PO BID PRN pain (scale score 11/14/20 (Vistaril) 4-6) #60 caps ibuprofen 400 mg tablet 400 mg PO Q4HR #90 tabs 11/14/20 oxycodone 10 mg tablet 10 mg PO Q3HR PRN Pain, Severe 11/14/20 (7-10) #42 tabs cephalexin 500 mg capsule 500 mg PO QID 7 days #28 caps 09/25/24 lidocaine 5 % topical patch 1 patch topical DAILY #30 ea 09/25/24 (Lidoderm) naproxen 375 mg tablet 375 mg PO BID PRN pain #20 tabs 09/25/24 Allergies Allergy/AdvReac Type Severity Reaction Status Date / Time hydrocodone Allergy Intermediate ITCHING, Verified 09/25/24 15:32 Rash amitriptyline AdvReac Severe Makes me Verified 09/25/24 15:32 very violent Review of Systems <Iva Ba PA-C - Last Filed: 09/25/24 18:42> Review of Systems ROS Unobtainable: All systems reviewed & are unremarkable except as noted in HPI and below Patient History <Iva Ba PA-C - Last Filed: 09/25/24 18:42> Medical History Neuropathy Fibromyalgia PTSD (post-traumatic stress disorder) ADD (attention deficit disorder) Bipolar 2 disorder Depression Anxiety Post-menopausal Acid reflux RAMIRO (obstructive sleep apnea) COPD (chronic obstructive pulmonary disease) Pneumonia Agoraphobia Sciatica Old complex tear of medial meniscus of right knee Osteoarthritis Hypothyroid Diabetes Surgical History History of surgery (~2006) History of bilateral tubal ligation Hx of eye surgery Hx of cholecystectomy Hx of appendectomy History of section Hx of fusion of cervical spine Hx of foot surgery (09/03/07) Social History household members: significant other Smoking Status: Current every day smoker alcohol intake: never Smoking Status: Current every day smoker tobacco type: vaping alcohol intake frequency: 0-2 drinks per day Exam <Iva Ba PA-C - Last Filed: 09/25/24 18:42> Narrative Exam Narrative: GENERAL: 59 year old patient appears stated age. Well-developed patient, in no acute distress. HEAD: Atraumatic. Normocephalic. CARDIOVASCULAR: Regular rate RESPIRATORY: ?Nonlabored respirations. ?Speaking in clear, full sentences. ? EXTREMITIES: Tenderness to light palpation of the arch of the left foot with overlying erythema and increased warmth. No streaking erythema or pain in the calf knee or thigh. There is slight erythema on the tips of all the toes and there is onychomycosis. She has brisk capillary refill and strong DP and PT pulses bilaterally. On the right medial malleolus there is a small scab with surrounding erythema and on the right anterior wu there are 2 flat circular darkened skin lesions. NEURO: AOx3. ?Clear speech. ?Sensation intact to light touch on bilateral plantar and dorsal feet. Initial Vital Signs Initial Vital Signs: Vital Signs Temperature 98.3 F 09/25/24 15:32 Pulse Rate 92 H 09/25/24 15:32 Respiratory Rate 18 09/25/24 15:32 Blood Pressure 126/68 09/25/24 15:32 Pulse Oximetry 99 09/25/24 15:32 Oxygen Delivery Method Room Air 09/25/24 15:32 <Dwaine Manley MD - Last Filed: 09/25/24 20:21> Initial Vital Signs Initial Vital Signs: Vital Signs Temperature 98.3 F 09/25/24 15:32 Pulse Rate 92 H 09/25/24 15:32 Respiratory Rate 18 09/25/24 15:32 Blood Pressure 126/68 09/25/24 15:32 Pulse Oximetry 99 09/25/24 15:32 Oxygen Delivery Method Room Air 09/25/24 15:32 Course <Iva Ba PA-C - Last Filed: 09/25/24 18:42> Orders Ordered: ED Orders 09/25/24 15:39 XR foot LT min 3V Stat Discontinued Medications Acetaminophen (Acetaminophen 325 Mg Tablet) 975 mg PO NOW ONE Stop: 09/25/24 17:40 Last Admin: 09/25/24 17:58 Dose: 975 mg Documented By: ELVA Cephalexin HCl (Cephalexin 250 Mg Capsule) 500 mg PO NOW ONE Stop: 09/25/24 17:40 Last Admin: 09/25/24 17:58 Dose: 500 mg Documented By: ELVA Lidocaine (Lidocaine 5% Patch) 1 each TOP NOW ONE Stop: 09/25/24 17:40 Last Admin: 09/25/24 17:59 Dose: 1 each Documented By: ELVA Vital Signs Vital signs: Vital Signs - 8 hr 09/25/24 15:32 09/25/24 18:39 Temperature 98.3 F 97.2 F L Pulse Rate 92 H 92 H Respiratory Rate 18 16 Blood Pressure 126/68 142/80 H Pulse Oximetry 99 95 Oxygen Delivery Method Room Air Room Air <Dwaine Manley MD - Last Filed: 09/25/24 20:21> Orders Ordered: ED Orders 09/25/24 15:39 XR foot LT min 3V Stat Discontinued Medications Acetaminophen (Acetaminophen 325 Mg Tablet) 975 mg PO NOW ONE Stop: 09/25/24 17:40 Last Admin: 09/25/24 17:58 Dose: 975 mg Documented By: ELVA Cephalexin HCl (Cephalexin 250 Mg Capsule) 500 mg PO NOW ONE Stop: 09/25/24 17:40 Last Admin: 09/25/24 17:58 Dose: 500 mg Documented By: ELVA Lidocaine (Lidocaine 5% Patch) 1 each TOP NOW ONE Stop: 09/25/24 17:40 Last Admin: 09/25/24 17:59 Dose: 1 each Documented By: ELVA Vital Signs Vital signs: Vital Signs - 8 hr 09/25/24 15:32 09/25/24 18:39 Temperature 98.3 F 97.2 F L Pulse Rate 92 H 92 H Respiratory Rate 18 16 Blood Pressure 126/68 142/80 H Pulse Oximetry 99 95 Oxygen Delivery Method Room Air Room Air MDM - Extremity (Nontraumatic) <Iva Ba PA-C - Last Filed: 09/25/24 18:42> Medical Records Attestation: I reviewed the patient's medical records. Medical records narrative: Reviewed printed records from [facility] describing that patient was brought to the emergency department via EMS for altered mental status, had slight improvement with Narcan but also was found to have a low sodium of 124 and was admitted to the hospital for observation, she had a brain MRI revealing a sella, suprasellar mass as discussed above commonly a pituitary adenoma or other lesion. Imaging Data X-Ray left Foot: Radiologist's Impression: PROCEDURE: XR FOOT LT MIN 3V INDICATIONS: pain, no trauma TECHNIQUE: 3 views of the foot were acquired. COMPARISON: None. FINDINGS: Bones: No fractures or dislocations. No suspicious bony lesions. Generalized degenerative changes are seen, which are worst along the Lisfranc joint. Plantar and Achilles calcaneal spurs are seen. Incidental note is made of an accessory ossicle, an os peroneum. Soft tissues: No tibiotalar joint effusion. Achilles tendon appears normal. IMPRESSION: Degenerative changes, a significant focal bony abnormality seen by plain film. MDM Narrative Medical decision making narrative: 59-year-old female with a past medical history of uncontrolled type 2 diabetes, chronic pain on morphine sulfate and gabapentin, COPD, hypertension, bipolar, pituitary mass who presents to the emergency department for left foot pain, redness, swelling x 3 days. Differential diagnosis includes but is not limited to arthritis, gout, fracture, cellulitis, sprain, strain, etc. On exam patient is in no acute distress, nontoxic appearing, vital signs appropriate. She has erythema tenderness and increased warmth of the medial arch of the left foot concerning for cellulitis. There is no streaking erythema and she is afebrile. Her bilateral feet are neurovascularly intact. X-ray was obtained of the left foot in triage revealing generalized degenerative changes are seen, which are worse along the Lisfranc joint, there plantar and Achilles calcaneal spurs are seen. No significant focal bony abnormality. Patient's pain is consistent with her areas of arthritis however given erythema, warmth, history of uncontrolled diabetes, we will treat out of an abundance of caution with cephalexin 500 mg q.i.d. x7 days for cellulitis. No signs of abscess or drainage. She also has 2 circular lesions on the right anterior wu that she is concerned for possible ringworm, while these lesions are not entirely consistent with a ringworm we did discuss that there is no harm to treat with [id number] clotrimazole cream. We will ttrial Lidoderm, Tylenol for pain and give 1st dose of cephalexin. We will put left foot and ankle into Maximilian wrap for support, she has a walker to help her ambulate. Recommended NSAIDs as well but she is already taking ibuprofen at home in addition she will continue with her home dose of morphine. We discussed strict ED return precautions. She verbalized understanding of all information is agreeable to plan. She is stable for discharge home. Discharge Plan Departure Patient Disposition: Home Clinical Impression: Cellulitis of foot, left, Arthritis of foot, left Instructions: DI for Cellulitis -- Adult Activity Restrictions/Additional Instructions: Dear Ms. Stallings, Thank you for coming to the emergency department. Today you were evaluated for left foot pain swelling and rash. X-ray of your left foot does reveal significant degenerative changes/arthritis which are worse at the arch of the foot. Your physical exam is also concerning fo skin infection of the foot, also known as cellulitis, which will require a course of antibiotics which happened sent to your pharmacy. You may apply topical numbing patches to this area to help with the pain in addition to taking the prescribed naproxen (anti-inflammatory pain medication), acetaminophen/Tylenol, and your normal home pain medications. Please use RICE therapy for your pain in addition to naproxen/acetaminophen. Rest the painful area. Ice the area of pain/swelling for at least 15 minutes, 4x a day. Compress the area of swelling using a brace, wrap, or splint if applied. Elevate the painful or swollen extremity by supporting it above the level of the heart with pillows when sitting or laying. Please return to the emergency department if you develop fevers, redness streaking up the leg, or any other concerns. Please follow up with your primary care doctor within the next 2-3 days for ER follow-up. (If you do not have a PCP you can call [phone]. ?to schedule an appointment with an [facility] Primary Care Provider) IF YOU DEVELOP ANY NEW OR WORSENING SYMPTOMS, RETURN TO THE ER! Please read the attached instructions, they highlight more specific treatments and interventions for you at home. Thank you for letting me participate in your care, Iva Ba PA-C Prescriptions: New cephalexin 500 mg capsule 500 mg PO QID 7 Days Qty: 28 0RF lidocaine [Lidoderm] 5 % adhesive patch,medicated 1 patch topical DAILY Qty: 30 0RF Rx Instructions: leave on most painful area for up to 12 hrs naproxen 375 mg tablet 375 mg PO BID PRN (Reason: pain) Qty: 20 0RF No Action metformin 500 mg Tablet 500 mg PO BID tizanidine 4 mg Tablet 4 mg PO TID PRN (Reason: Muscle spasms) baclofen 10 mg Tablet 10 mg PO TID ibuprofen [Advil] 200 mg Tablet 600 mg PO DAILY PRN (Reason: Migraines) morphine 30 mg Capsule 30 mg PO BID gabapentin 300 mg Tablet 900 mg PO TID acetaminophen 325 mg Tablet 650 mg PO TID Qty: 90 0RF aspirin 81 mg Tablet,Delayed Release (Dr/Ec) 81 mg PO BID Qty: 90 0RF ibuprofen 400 mg Tablet 400 mg PO Q4HR Qty: 90 0RF oxycodone 10 mg Tablet 10 mg PO Q3HR PRN (Reason: Pain, Severe (7-10)) Qty: 42 0RF hydroxyzine pamoate [Vistaril] 25 mg capsule 25 mg PO BID PRN (Reason: pain (scale score 4-6)) Qty: 60 0RF hydroxyzine pamoate 25 mg Capsule 25 mg PO Q6HR PRN (Reason: Nausea) Qty: 40 0RF dicyclomine 20 mg tablet 20 mg PO QID duloxetine 60 mg capsule,delayed release(DR/EC) 60 mg PO BID quetiapine 200 mg tablet 3 tab PO QHS levothyroxine 200 mcg tablet 1 tab PO DAILY alprazolam 1 mg Tablet 1 mg PO TID ondansetron HCl 4 mg Tablet 4 mg PO Q6H PRN (Reason: Nausea And Vomiting) promethazine 25 mg Tablet 25 - 50 mg PO Q6H PRN (Reason: Nausea And Vomiting) Humalog U-100 Insulin 18 - 25 units Sub-Q BID Lantus U-100 Insulin bottle 50 units Sub-Q QPM Rx Instructions: With dinner Referrals: Robin Holder MD [Primary Care Provider] - Stand Alone Forms: Patient Portal/API/Survey ED Sign-out <Dwaine Manley MD - Last Filed: 09/25/24 20:21> Cosign ED Attending Lori Attestation: I was immediately available in the department for consultation. This documentation has been reviewed and I agree with assessment and plan. Supervised by Dwaine Manley MD
[2024-09-25] MEDS: cephALEXin 250 MG CAPSULE 500 MG PO (17:58)
[2024-09-25] MEDS: ACETAMINOPHEN 325 MG TABLET 975 MG PO (17:58)
[2024-09-25] MEDS: LIDOCAINE 5% PATCH 1 EACH TOP (17:59)
[2024-09-25 18:39] VITALS: BP 142/80; PULSE 92; RESP 16; TEMP 36.2; O2SAT 95
== END 2024-09-25 18:39 | disposition home or self-care (01) ==
PROVIDERS: Emergency Provider Physician Assistant; PCP Family Medicine
DX: L03.116 Cellulitis of left lower limb (principal); M19.072 Primary osteoarthritis, left ankle and foot
CPT/HCPCS: 73630; 99283